=== PATIENT | male | born 1955 | race Caucasian/White ===

== ENCOUNTER → 2018-04-19 11:21 | Outpatient (CLI) | payer OTHER, SELFPAY ==
[2018-04-19 14:03] LABS: ALB/GLOB Ratio 1.1 RATIO (0.9-2.4); AST(SGOT) 18 U/L (15-37); Alanine Aminotransfer ALT/SGPT 27 U/L (16-61); Albumin, Serum 3.7 g/dL (3.2-5.0); Alkaline Phosphatase 73 U/L (45-117); Anion Gap 6 (5-15); BUN 9 mg/dL (7-18); Calcium,Total 8.8 mg/dL (8.5-10.1); Chloride 105 mmol/L (98-107); Creatinine, Serum 1.28 mg/dL (0.70-1.30); EST Glomerular Filtration Rate 60 mL/min (>60); Est Glom Filt Rate - Afr Amer 73 mL/min (>60); Globulin 3.4 g/dL (2.2-4.2); Glucose 85 mg/dL (74-106); Potassium 4.3 mmol/L (3.5-5.1); Protein, Total 7.1 g/dL (6.4-8.2); Sodium Level 141 mmol/L (136-145)
== END ==
PROVIDERS: Family Provider Family Medicine; PCP Family Medicine; Visit Provider Family Medicine
DX: I10 Essential (primary) hypertension (principal)
CPT/HCPCS: 36415; 80053

== ENCOUNTER → 2019-02-13 | Outpatient (CLI) | payer OTHER, SELFPAY ==
[2019-02-13 15:21] VITALS: BMI 27.2
== END | disposition home or self-care (01) ==
LOC: BIMLAB 02-15 11:28
PROVIDERS: Family Provider Family Medicine; PCP Family Medicine; Visit Provider Family Medicine
DX: M79.674 Pain in right toe(s) (principal)
CPT/HCPCS: 87070; 87075; 87077; 87186; 87205

== ENCOUNTER → 2019-02-27 | Outpatient (CLI) | payer OTHER, SELFPAY ==
[2019-02-13 15:21] VITALS: BMI 27.2
--- NOTE | 2019-02-27 15:00 | RAD_ITS ---
STUDY: X-RAY - RIGHT FOOT CLINICAL: Male, 63 years old. Pain and swelling of the second toe. TECHNIQUE: 3 view(s) of the foot. COMPARISON: None. FINDINGS: Normal talus, calcaneus, and tarsal bones. Normal visualized subtalar, talonavicular, calcaneocuboid, tarsal and tarsometatarsal articulations. Normal metatarsi. Normal metatarsophalangeal joint of the great toe. Normal tibial and fibular sesamoid bones. Normal interphalangeal joint of the great toe. Normal phalanges of the great toe. Normal second through fifth metatarsophalangeal joints. Normal interphalangeal joints and phalanges of the lesser toes. Soft tissue swelling. RAD/Foot min 3 Views IMPRESSION: Soft tissue swelling. Electronically Signed: Ismael Jain, at 15:15 EDT , Service support ,
== END | disposition home or self-care (01) ==
PROVIDERS: Family Provider Family Medicine; PCP Family Medicine; Referring Provider Family Medicine; Visit Provider Family Medicine
DX: M00.871 Arthritis due to other bacteria, right ankle and foot (principal)
CPT/HCPCS: 73630

== ENCOUNTER → 2019-04-24 | Outpatient (CLI) | payer OTHER, SELFPAY ==
[2019-04-24 13:56] VITALS: BMI 27.2
[2019-04-24 16:21] LABS: ALB/GLOB Ratio 1.2 RATIO (0.9-2.4); AST(SGOT) 26 U/L (15-37); Alanine Aminotransfer ALT/SGPT 33 U/L (16-61); Albumin, Serum 3.9 g/dL (3.2-5.0); Alkaline Phosphatase 87 U/L (45-117); Anion Gap 7 (5-15); BUN 10 mg/dL (7-18); BUN/Creat Ratio 8.3 RATIO (10-20); Calcium,Total 8.8 mg/dL (8.5-10.1); Chloride 102 mmol/L (98-107); Cholesterol 167 mg/dL (200); EST Glomerular Filtration Rate 65 mL/min (>60); Est Glom Filt Rate - Afr Amer 78 mL/min (>60); Globulin 3.2 g/dL (2.2-4.2); Glucose 92 mg/dL (74-106); High Density Lipoprotein 59 mg/dL; Potassium 4.1 mmol/L (3.5-5.1); Protein, Total 7.1 g/dL (6.4-8.2); Sodium Level 140 mmol/L (136-145); Triglycerides 112 mg/dL; Very Low Density Lipoprotein 22 mg/dL (5-40)
== END | disposition home or self-care (01) ==
LOC: MTLAB 14:32
PROVIDERS: Family Provider Family Medicine; PCP Family Medicine; Referring Provider Family Medicine; Visit Provider Family Medicine
DX: I10 Essential (primary) hypertension (principal)
CPT/HCPCS: 36415; 80053; 80061

== ENCOUNTER → 2020-03-26 16:25 | Outpatient (CLI) | payer OTHER, SELFPAY ==
[2020-03-26 15:51] VITALS: BMI 27.2
[2020-03-26 17:39] LABS: Anion Gap 7 (5-15); BUN 12 mg/dL (7-18); BUN/Creat Ratio 9.5 RATIO (10-20); Calcium,Total 8.8 mg/dL (8.5-10.1); Chloride 99 mmol/L (98-107); Creatinine, Serum 1.26 mg/dL (0.70-1.30); EST Glomerular Filtration Rate 61 mL/min (>60); Est Glom Filt Rate - Afr Amer 74 mL/min (>60); Glucose 90 mg/dL (74-106); Potassium 3.9 mmol/L (3.5-5.1); Sodium Level 137 mmol/L (136-145)
== END ==
PROVIDERS: PCP Family Medicine; Referring Provider Family Medicine; Visit Provider Family Medicine
DX: I10 Essential (primary) hypertension (principal)
CPT/HCPCS: 36415; 80048

== ENCOUNTER → 2021-04-29 13:36 | Outpatient (CLI) | payer OTHER, SELFPAY ==
--- NOTE | 2021-04-29 13:38 | RAD_ITS ---
STUDY: X-RAY CHEST REASON FOR EXAM: Male, 65 years old. Wheezing TECHNIQUE: PA and lateral views of the chest. COMPARISON: None. FINDINGS: Lungs are mildly hyperexpanded without a superimposed acute pulmonary process. There is no demonstrated pleural abnormality. Normal size heart. Normal mediastinum and perla. Normal visualized pulmonary arteries. Normal visualized aortic arch and descending thoracic aorta. Normal visualized thoracic spine. Normal visualized ribs, clavicles, and shoulders. There is no demonstrated abnormality of the visualized soft tissue structures of the upper abdomen. RAD/Chest PA and Lateral IMPRESSION: Mildly hyperexpanded lungs without a superimposed acute pulmonary process Electronically Signed: Aleks Oswald MD at 17:01 EDT , Service support ,
[2021-04-29 15:36] LABS: Anion Gap 4 (5-15); BUN 10 mg/dL (7-18); Calcium,Total 8.8 mg/dL (8.5-10.1); Chloride 100 mmol/L (98-107); Creatinine, Serum 1.25 mg/dL (0.70-1.30); EST Glomerular Filtration Rate 61 mL/min (>60); Est Glom Filt Rate - Afr Amer 74 mL/min (>60); Glucose 107 mg/dL (74-106); Potassium 4.1 mmol/L (3.5-5.1); Sodium Level 135 mmol/L (136-145)
== END ==
PROVIDERS: PCP Family Medicine; Referring Provider Family Medicine; Visit Provider Family Medicine
DX: I10 Essential (primary) hypertension (principal); R06.2 Wheezing
CPT/HCPCS: 36415; 71046; 80048

== ENCOUNTER → 2022-04-28 | Outpatient (CLI) | payer OTHER, SELFPAY ==
[2022-04-28 16:52] LABS: ALB/GLOB Ratio 0.9 RATIO (0.9-2.4); AST(SGOT) 19 U/L (15-37); Alanine Aminotransfer ALT/SGPT 28 U/L (16-61); Albumin, Serum 3.6 g/dL (3.2-5.0); Alkaline Phosphatase 99 U/L (45-117); Anion Gap 7 (5-15); BUN 14 mg/dL (7-18); BUN/Creat Ratio 11.9 RATIO (10-20); Calcium,Total 8.9 mg/dL (8.5-10.1); Chloride 100 mmol/L (98-107); Cholesterol 184 mg/dL (200); Creatinine, Serum 1.18 mg/dL (0.70-1.30); EST Glomerular Filtration Rate 65 mL/min (>60); Est Glom Filt Rate - Afr Amer 79 mL/min (>60); Globulin 3.8 g/dL (2.2-4.2); Glucose 100 mg/dL (74-106); High Density Lipoprotein 49 mg/dL; Potassium 4.3 mmol/L (3.5-5.1); Protein, Total 7.4 g/dL (6.4-8.2); Sodium Level 136 mmol/L (136-145); Triglycerides 149 mg/dL; Very Low Density Lipoprotein 30 mg/dL (5-40)
== END | disposition home or self-care (01) ==
LOC: BIMLAB 14:55
PROVIDERS: PCP Family Medicine; Referring Provider Family Medicine; Visit Provider Family Medicine
DX: I10 Essential (primary) hypertension (principal)
CPT/HCPCS: 36415; 80053; 80061

== ENCOUNTER 2023-02-07 10:00 | Inpatient (IN) | payer OTHER, MEDICARE, SELFPAY ==
[2023-02-07] VITALS (9 sets, daily range): BP systolic 157–183; BP diastolic 81–92; PULSE 74–102; RESP 16–18; TEMP 36.6–37.1; O2SAT 96–99; BMI 27.6; BMI 26.0
--- NOTE | 2023-02-07 10:53 | CT_ITS ---
INDICATION: Flank pain bilateral. Hernia repair EXAMINATION: CT ABDOMEN AND PELVIS WITHOUT CONTRAST - CT Abdomen And Pelvis W/O Contrast Injection TECHNIQUE: Helically acquired images were obtained of the abdomen and pelvis without oral or IV contrast. A radiation dose optimization technique was used for this scan. IV Contrast dosage and agent: None. Oral contrast: None. RADIATION DOSAGE (If Supplied By Facility): CTDIvol = ( 10.63 ) mGy, DLP = ( 504.77 ) mGycm COMPARISON: No relevant prior comparison study available FINDINGS: LOWER CHEST: Lung bases are clear. There is a pericardial effusion. There are coronary artery calcifications. The lack of intravenous contrast limits evaluation of solid visceral organs. LIVER: There is a too small to characterize low-attenuation focus within the dome of the left hepatic lobe which may reflect a cyst. No focal mass. GALLBLADDER AND BILIARY TREE: No calcified gallstones. No gallbladder distension or wall edema. No intra- or extrahepatic biliary ductal dilation. PANCREAS: No focal cystic or solid mass. SPLEEN: Normal size without focal cystic or solid mass. ADRENAL GLANDS: No nodules. KIDNEYS AND URETERS: Normal renal size and position. No hydronephrosis. PERITONEUM: No ascites or free air. No other fluid collection. BOWEL: There are diverticula arising from the colon. There is circumferential wall thickening of the sigmoid colon associated with adjacent stranding consistent with colonic diverticulitis. There is a walled off focus of fluid and air within the pelvis left of midline and extending anterior to the left common iliac vessels measuring up to 7.3 x 7.4 x 4.8 cm (image 106 series 2) there is an additional smaller walled off extraluminal focus of air and fluid adjacent to the sigmoid colon left midline measuring up to 2.4 x 2.7 x 1.5 cm (image 127 series 2). There is an additional round fluid focus adjacent to the distal sigmoid colon and proximal rectum measuring up to 2.6 x 2.3 x 2.6 cm. There is a hiatal hernia. No evidence of acute appendicitis. LYMPH NODES: No enlarged mesenteric or retroperitoneal lymph nodes. VESSELS: Aorta is non-dilated. There are peripheral calcifications of the abdominal aorta. URINARY BLADDER: The anterior urinary bladder right of midline protrudes into a right inguinal hernia. REPRODUCTIVE ORGANS: No pelvic masses. BONES: There are degenerative changes of the lumbar spine. CT/Abdomen/Pelvis without Cont IMPRESSION: Acute diverticulitis of the sigmoid colon associated with evidence of prior perforation and likely abscesses within the pelvis measuring up to 7.3 x 7.4 x 4.8 cm. Atherosclerosis. Right inguinal bladder hernia. Hiatal hernia. Small pericardial effusion. N.B. : The above Results were Read Back by Chrissy Robins MD to Chao Dietz DO, and understanding confirmed on 02/07/2023 11:53:43 (ET). Electronically Signed: Chrissy Robins MD at 11:54 EDT ,
[2023-02-07] MEDS: 0.9% Normal Saline 1,000 ML 1000 ML IV (11:18)
[2023-02-07] MEDS: Morphine 4 MG/ML Syringe IV ×3 (11:19→22:26)
[2023-02-07 11:23] LABS: Absolute Lymphocyte Count 0.87 X10^3/uL (0.83-4.51); Absolute Neutrophil Count 11.6 X10^3/uL (2.0-7.7); Basophil# 0.07 X10^3/uL; Basophil% 0.5 % (0-1); Eosinophil# 0.05 X10^3/uL; Eosinophils% 0.4 % (0-5); Hematocrit 39.6 % (40-54); Lymphocyte # 0.87 X10^3/ul (0.83-4.51); Lymphocyte % 6.2 % (19-41); Mean Corp Hgb Conc 35.4 g/dL (32-36); Mean Corpuscular Volume 90.6 fL (80-94); Mean Platelet Vol. 8.5 fl (6.2-12.0); Monocyte% 9.3 % (0-10); NRBC Flagged by Analyzer 0 % (0-5); Neutrophil # 11.57 X10^3/uL (2.7-7.7); Neutrophil % 82.5 % (47-70); Platelet Count 470 K/mm3 (150-450); RBC Distribution Width CV 12.6 % (11.6-14.6); RBC Distribution Width SD 41.9 fl (35.1-43.9); Red Blood Count 4.37 M/mm3 (4.6-6.2)
[2023-02-07 11:30] LABS: Bacteria 0 SEEN /hpf (None Seen); Mucous, Urine 0 SEEN /hpf (<or=2+); Red Blood Cells-Urine 0 SEEN /hpf (0-5)
[2023-02-07 11:38] LABS: Color, Urine Yellow (Yellow); Glucose, Dipstick Normal (Normal); Leukocyte Esterase-Dipstick 25 /ul (Negative); Nitrite-Dipstick Negative (Negative); Occult Blood-Urine 10 /ul (Negative); Protein-Dipstick 15 mg/dl (Negative); Specific Gravity, Urine 1.015 (1.002-1.030); Urine Clarity Clear (Clear); Urine Urobilinogen 8 mg/dl (Normal)
[2023-02-07 11:39] LABS: ALB/GLOB Ratio 0.6 RATIO (0.9-2.4); AST(SGOT) 16 U/L (15-37); Alanine Aminotransfer ALT/SGPT 43 U/L (16-61); Albumin, Serum 2.7 g/dL (3.2-5.0); Alkaline Phosphatase 102 U/L (45-117); Anion Gap 10 (5-15); BUN 9 mg/dL (7-18); BUN/Creat Ratio 10.8 RATIO (10-20); Calcium,Total 8.9 mg/dL (8.5-10.1); Chloride 99 mmol/L (98-107); Creatinine, Serum 0.83 mg/dL (0.70-1.30); EST Glomerular Filtration Rate 97 mL/min (>60); Est Glom Filt Rate - Afr Amer 118 mL/min (>60); Estimated Creatinine Clearance 81.27 ml/min; Globulin 4.5 g/dL (2.2-4.2); Glucose 121 mg/dL (74-106); Potassium 3.9 mmol/L (3.5-5.1); Protein, Total 7.2 g/dL (6.4-8.2); Sodium Level 132 mmol/L (136-145)
[2023-02-07 11:39] LABS: Ketone-Dipstick 150 mg/dl (Negative); Urine Bilirubin Dipstick 1 mg/dL (Negative)
[2023-02-07 11:46] LABS: Squamous Epithelial Cells - UA 0-5 SEEN /hpf (0-5); White Blood Cells 0-5 SEEN /hpf (0-5)
--- NOTE | 2023-02-07 12:11 | EX.ED.DYSGE1 ---
HPI History of Present Illness Chief Complaint: Flank Pain Informant: patient Onset/Context/Timing Onset: Weeks (2) Context: Sudden Onset Timing: Continuous Quality: Burning, throbbing Location: Bilateral flank area Worsened by: Nothing Relieved by: Nothing Narrative Narrative: Patient presents with bilateral flank pain that began approximately 2 weeks ago. Patient states he was having a cough at that time. Patient states he was coughing very hard and felt pain in his bilateral flank areas. Patient states this has been constant. Patient states he felt like something tore in his bilateral flank areas. Patient states he has had some darker urine recently. Patient states this is improving. Patient does not know if it was blood. Patient denies any fevers or chills. Patient denies any nausea or vomiting. [facility] Medical History (Updated 02/07/23 @ 12:[address] Chao Dietz DO) History of pneumonia Hypertension Home Medications aspirin 81 mg tablet,delayed release (Adult Aspirin Regimen) 81 mg PO DAILY 04/01/22 [History Last Taken Unknown] quinapril 20 mg-hydrochlorothiazide 12.5 mg tablet 1 tab PO DAILY #90 tabs 04/28/22 [Rx Last Taken Unknown] sildenafil (pulm.hypertension) 20 mg tablet 20 mg PO .PRN #30 tabs 07/11/22 [Rx Last Taken Unknown] hydrochlorothiazide 12.5 mg tablet 12.5 mg PO DAILY #90 tabs 08/16/22 [Rx Last Taken Unknown] quinapril 20 mg tablet 20 mg PO DAILY #90 tabs 08/22/22 [Rx Last Taken Unknown] benazepril 20 mg tablet See Rx Instructions PO DAILY #90 tabs 11/23/22 [Rx Last Taken Unknown] Allergy/AdvReac Type Severity Reaction Status Date / Time No Known Allergies Allergy Verified 02/07/23 10:04 Family History Grandmother Myocardial infarction, Onset Age: 68 Uncle Myocardial infarction, Onset Age: 47 Alcoholism Sister Diabetes Mother Hypertension Father COPD (chronic obstructive pulmonary disease) smoker Surgical History H/O colonoscopy History of hemorrhoidectomy History of hernia repair History of tonsillectomy Social History Smoking Status: Former smoker how long ago did patient quit smokin alcohol intake: current alcohol intake frequency: 0-2 drinks per day Alcohol type: beer substance use type: does not use what type of physical activity do you participate in: walking frequency: 3-4 times per week ROS ROS ED Constitutional Constitutional ED: Denies chills or fever(s) Eyes Eyes: Denies blurry vision or change in vision ENT ENT ED: Denies rhinorrhea or sore throat Cardiovascular Cardiovascular: Denies chest pain or palpitations Respiratory/Chest Respiratory/Chest: Reports cough; Denies dyspnea Gastrointestinal Gastrointestinal: Denies nausea or vomiting Genitourinary Genitourinary ED: Denies dysuria or hematuria Musculoskeletal Musculoskeletal: Reports back pain; Denies neck pain Integumentary Denies abscess or rash Neurologic Neurologic: Denies headache(s) or weakness Allergic/Immunologic Allergic/Immunologic ED: Denies mouth swelling or urticaria EXAM Physical Exam Const Vital Signs: 02/07/23 10:01 02/07/23 10:24 02/07/23 12:00 Temperature 98 F Temperature Source Temporal Pulse Rate 102 H 89 Respiratory Rate 18 16 Respiratory Effort Normal Non-Labored Respiratory Pattern Normal Blood Pressure 183/86 H 164/92 H Blood Pressure Mean 118 116 Pulse Ox 98 97 Oxygen Delivery Method Room Air Room Air Positive well nourished and well developed General Appearance ED: well developed HEENT Reports moist mucous membranes Neck supple and no JVD Resp normal respiratory effort and clear to auscultation bilaterally Cardio regular rate, regular rhythm and no murmurs GI normal to inspection, nondistended, normoactive bowel sounds Palpation: soft and tender LLQ, RLQ, LUQ, RUQ, periumbilical and suprapubic; Negative for guarding or rebound tenderness present Extremity normal to inspection General Extremety ED: Negative for edema or tenderness General Extremity: Negative for edema Neuro oriented x3, CN's II-XII intact bilaterally and no sensory deficits noted Sensorium / Orientation: alert Motor Exam: strength 5/5 throughout Psych mental status grossly normal Skin no rashes or lesions noted MDM MDM MDM Narrative Medical decision making narrative: Differential diagnosis includes urinary tract infection, ureteral calculus, gastroenteritis, diverticulitis, diverticulosis, electrolyte abnormality, and bowel obstruction. CBC will be obtained to assess for leukocytosis and anemia. Comprehensive metabolic profile will be obtained to assess for hepatic function, renal function, and electrolyte abnormality. Urinalysis will be obtained to assess for urinary tract infection and hematuria. CT scan of the abdomen pelvis will be obtained to assess for ureteral calculus, pyelonephritis, bowel obstruction, and perforation. Lab Data Attestation: I reviewed the patient's lab results. Lab results narrative: CBC was reviewed. There is a leukocytosis of 14.0. Comprehensive metabolic profile was reviewed. There is a mild hyponatremia of 132. Glucose was slightly elevated at 121. Urinalysis was reviewed. Urine ketones were 150. There is no evidence of urinary tract infection or hematuria. Labs: Laboratory Results - last 24 hr 02/07/23 02/07/23 02/07/23 11:15 11:15 11:25 WBC 14.0 H RBC 4.37 L Hgb 14.0 Hct 39.6 L MCV 90.6 MCH 32.0 MCHC 35.4 RDW Std Deviation 41.9 RDW Coeff of [place]ivo 12.6 Plt Count 470 H MPV 8.5 Immature Gran % (Auto) 1.100 H Neut % (Auto) 82.5 H Lymph % (Auto) 6.2 L [place] % (Auto) 9.3 Eos % (Auto) 0.4 Baso % (Auto) 0.5 Absolute Neuts (auto) 11.6 H Absolute Lymphs (auto) 0.87 Nucleated RBC % 0 Sodium 132 L Potassium 3.9 Chloride 99 Carbon Dioxide 23.0 Anion Gap 10 BUN 9 Creatinine 0.83 Estim Creat Clear Calc 81.27 Est GFR (MDRD) Af Amer 118 Est GFR (MDRD) Non-Af 97 BUN/Creatinine Ratio 10.8 Glucose 121 H Calcium 8.9 Total Bilirubin 0.70 AST 16 ALT 43 Alkaline Phosphatase 102 Total Protein 7.2 Albumin 2.7 L Globulin 4.5 H Albumin/Globulin Ratio 0.6 L Urine Color Yellow Urine Clarity Clear Urine pH 7.0 Ur Specific [place] 1.015 Urine Protein 15 H Urine Glucose (UA) Normal Urine Ketones 150 A* Urine Occult Blood 10 H Urine Nitrite Negative Urine Bilirubin 1 H Urine Urobilinogen 8 H Ur Leukocyte Esterase 25 H Urine RBC 0 SEEN Urine WBC 0-5 SEEN Ur Squamous Epith Cells 0-5 SEEN Urine Bacteria 0 SEEN Urine Mucus 0 SEEN Radiography Diagnostic Testing: Clinical Impression(s) from Imaging Studies Abdomen/Pelvis CT 02/07/23 10:53 IMPRESSION: Acute diverticulitis of the sigmoid colon associated with evidence of prior perforation and likely abscesses within the pelvis measuring up to 7.3 x 7.4 x 4.8 cm. Atherosclerosis. Right inguinal bladder hernia. Hiatal hernia. Small pericardial effusion. N.B. : The above Results were Read Back by Chrissy Robins MD to Chao Dietz DO, and understanding confirmed on 02/07/2023 11:53:43 (ET). Electronically Signed: Chrissy Robins MD at 11:54 EDT , ADDENDUM: 02/07/23 1201 IMPRESSION: Acute diverticulitis of the sigmoid colon associated with evidence of prior perforation and likely abscesses within the pelvis measuring up to 7.3 x 7.4 x 4.8 cm. Atherosclerosis. Right inguinal bladder hernia. Hiatal hernia. Small pericardial effusion. N.B. : The above Results were Read Back by Chrissy Robins MD to Chao Dietz DO, and understanding confirmed on 02/07/2023 11:53:43 (ET). Electronically Signed: Chrissy Robins MD at 11:54 EDT , CT scan of the abdomen and pelvis was obtained. There is diverticulitis of the sigmoid colon. There is perforation and likely abscess within the pelvis. This was interpreted by the radiologist and was also independently reviewed by myself. Treatment and Re-Evaluation :: Patient was given IV fluids and morphine. Patient was advised of his findings. Case was discussed with Dr. Fernandez from general surgery. He recommended starting Zosyn. This was ordered. He will be in to evaluate the patient. Patient and family understand and are agreeable with the plan. All questions were answered. Dr. Fernandez was in to evaluate the patient. He will admit the patient to his service. Patient was ordered a dose of Dilaudid for his pain. Patient was given a dose of Dilaudid and then developed diffuse erythema. Oropharynx was clear. Airway is patent. There is no pharyngeal edema noted. Patient was given a dose of Benadryl for this. Patient understands and is agreeable with the plan. All questions were answered. Discharge Plan Triage Chief Complaint: Flank Pain ED Provider: Chao Dietz Dx/Rx/DC Orders Clinical Impression: Diverticulitis of colon with perforation, Abscess of pelvis Prescriptions: No Action aspirin [Adult Aspirin Regimen] 81 mg tablet,delayed release (DR/EC) 81 mg PO DAILY quinapril-hydrochlorothiazide 20-12.5 mg tablet 1 tab PO DAILY Qty: 90 3RF Hold Instructions: Not available. sildenafil (pulm.hypertension) 20 mg tablet 20 mg PO .PRN Qty: 30 3RF Rx Instructions: administer doses at least 4-6 hours apart hydrochlorothiazide 12.5 mg tablet 12.5 mg PO DAILY Qty: 90 0RF quinapril 20 mg tablet 20 mg PO DAILY Qty: 90 0RF Hold Instructions: Order Changed benazepril 20 mg tablet See Rx Instructions PO DAILY Qty: 90 2RF Dose Instruction: 20 MG ORALLY DAILY Rx Instructions: 20 MG ORALLY DAILY orally daily; Primary Care Provider: Will Eldridge Referrals: Will Eldridge, DO [Primary Care Provider] - Disposition Disposition: Acute Care Hospital [facility]
--- NOTE | 2023-02-07 13:34 | HP.PCM_ITS ---
[facility] - General General Date of Admission: 02/07/23 Chief Complaint: Flank pain, constipation, and inability to eat or sleep normally HPI Narrative LAURO GIPSON, is a 67 M who presents to [facility] ER with complaints of bilateral flank pain for the last 1 month. He reports that this pain has been worse with coughing. He states that he has had weeks of constipation and poor sleep on the account of this flank pain. He estimates that it has been 1 month since he had a well-rounded diet. He has been trying to eat fruits and things that are easily digestible just to subsist. He states that he simply told his that he would come in if his pain was not better by the following day and that date is today. He denies any fevers or chills at h ome. He states that he has had some difficulty getting into his primary care provider and has been treated for some constipation. Patient has a past medical history of hypertension. Surgically speaking, he has a history of bilateral open inguinal hernia repair in 2000 and a hemorrhoidectomy several years later. He states that he did have a colonoscopy approximately 15 years ago and was found to have a single polyp. He recalls a 10-year follow-up was recommended, but states that he did not go through with this updated screening on the account of a family issue that developed. Mr. Gipson is unaware of any family history of colon cancer. ER work-up is notable for CBC that demonstrates leukocytosis of 14,000. CT imaging of the abdomen and pelvis without p.o. or IV contrast shows evidence of multiple abscesses including a greater than 7 cm abscess adjacent in appearance of acute diverticulitis in the sigmoid colon. [facility] Medical History (Updated 02/07/23 @ 12:[address] Chao Dietz, ) History of pneumonia Hypertension Home Medications aspirin 81 mg tablet,delayed release (Adult Aspirin Regimen) 81 mg PO DAILY 04/01/22 [History Last Taken Unknown] sildenafil (pulm.hypertension) 20 mg tablet 20 mg PO .PRN #30 tabs 07/11/22 [Rx Last Taken Unknown] benazepril 20 mg tablet See Rx Instructions PO DAILY #90 tabs 11/23/22 [Rx Last Taken Unknown] Allergy/AdvReac Type Severity Reaction Status Date / Time hydromorphone [From Dilaudid] Allergy Hives Verified 02/07/23 13:52 Family History Grandmother Myocardial infarction, Onset Age: 68 Uncle Myocardial infarction, Onset Age: 47 Alcoholism Sister Diabetes Mother Hypertension Father COPD (chronic obstructive pulmonary disease) smoker Surgical History H/O colonoscopy History of hemorrhoidectomy History of hernia repair History of tonsillectomy Social History Smoking Status: Former smoker how long ago did patient quit smokin alcohol intake: current alcohol intake frequency: 0-2 drinks per day Alcohol type: beer substance use type: does not use what type of physical activity do you participate in: walking frequency: 3-4 times per week ROS Constitutional Constitutional: Denies chills, fever(s) or night sweats Gastrointestinal Gastrointestinal: Reports abdominal pain and constipation; Denies diarrhea, nausea or vomiting Genitourinary Genitourinary: Reports other Details: Notes urine has been darker in color Vital Signs Vital Signs Vital Signs: 02/07/23 10:01 02/07/23 10:24 02/07/23 12:00 Temperature 98 F Temperature Source Temporal Pulse Rate 102 H 89 Respiratory Rate 18 16 Respiratory Effort Normal Non-Labored Respiratory Pattern Normal Blood Pressure 183/86 H 164/92 H Blood Pressure Mean 118 116 Pulse Ox 98 97 Oxygen Delivery Method Room Air Room Air Weight Weight: 182 lb Body Mass Index (BMI) 27.6 Physical Exam Const alert, oriented x3, no apparent distress and well nourished General Appearance: cooperative Resp normal respiratory effort GI GI Narrative: No scars, minimally distended, soft, nontender to palpation x4 quadrants including deep, focused palpation of the left lower quadrant and mid abdomen Results Lab / Micro Data Result Diagrams: 02/07/23 11:15 02/07/23 11:15 Labs: Laboratory Results - last 24 hr 02/07/23 11:15: WBC 14.0 H, RBC 4.37 L, Hgb 14.0, Hct 39.6 L, MCV 90.6, MCH 32. 0, MCHC 35.4, RDW Std Deviation 41.9, RDW Coeff of [place] 12.6, Plt Count 470 H, MPV 8.5, Immature Gran % (Auto) 1.100 H, Neut % (Auto) 82.5 H, Lymph % (Auto) 6.2 L, [place] % (Auto) 9.3, Eos % (Auto) 0.4, Baso % (Auto) 0.5, Absolute Neuts (auto) 11.6 H, Absolute Lymphs (auto) 0.87, Nucleated RBC % 0 02/07/23 11:15: Sodium 132 L, Potassium 3.9, Chloride 99, Carbon Dioxide 23.0, Anion Gap 10, BUN 9, Creatinine 0.83, Estim Creat Clear Calc 81.27, Est GFR (MDRD) Af Amer 118, Est GFR (MDRD) Non-Af 97, BUN/Creatinine Ratio 10.8, Glucose 121 H, Calcium 8.9, Total Bilirubin 0.70, AST 16, ALT 43, Alkaline Phosphatase 102, Total Protein 7.2, Albumin 2.7 L, Globulin 4.5 H, Albumin/Globulin Ratio 0.6 L 02/07/23 11:25: Urine Color Yellow, Urine Clarity Clear, Urine pH 7.0, Ur Specific [place] 1.015, Urine Protein 15 H, Urine Glucose (UA) Normal, Urine Ketones 150 A*, Urine Occult Blood 10 H, Urine Nitrite Negative, Urine Bilirubin 1 H, Urine Urobilinogen 8 H, Ur Leukocyte Esterase 25 H, Urine RBC 0 SEEN, Urine WBC 0-5 SEEN, Ur Squamous Epith Cells 0-5 SEEN, Urine Bacteria 0 SEEN, Urine M ucus 0 SEEN Radiology Impression Abdomen/Pelvis CT 02/07/23 10:53 IMPRESSION: Acute diverticulitis of the sigmoid colon associated with evidence of prior perforation and likely abscesses within the pelvis measuring up to 7.3 x 7.4 x 4.8 cm. Atherosclerosis. Right inguinal bladder hernia. Hiatal hernia. Small pericardial effusion. N.B. : The above Results were Read Back by Chrissy Robins MD to Chao Dietz DO, and understanding confirmed on 02/07/2023 11:53:43 (ET). Electronically Signed: Chrissy Robins MD at 11:54 EDT , ADDENDUM: 02/07/23 1201 IMPRESSION: Acute diverticulitis of the sigmoid colon associated with evidence of prior perforation and likely abscesses within the pelvis measuring up to 7.3 x 7.4 x 4.8 cm. Atherosclerosis. Right inguinal bladder hernia. Hiatal hernia. Small pericardial effusion. N.B. : The above Results were Read Back by Chrissy Robins MD to Chao Dietz DO, and understanding confirmed on 02/07/2023 11:53:43 (ET). Electronically Signed: Chrissy Robins MD at 11:54 EDT , Assessment & Plan Assessment/Plan (1) Diverticulitis of colon with perforation: PLAN: This is a 67-year-old male with minimal past medical history (inclusive only of hypertension) who presents with a month-long complaint of bilateral flank pain, constipation, poor diet, and poor sleep. His ER work-up reveals evidence of perforated diverticulitis with a large intra-abdominal abscess measuring greater than 7 cm. Unfortunately the abscess area is not amenable to percutaneous drainage and the success of this venture?even if possible?is dubious given that the contents of the abscess appeared more feculent than homogenous/confluent. Patient is remarkably clinically stable with minimal discomfort on exam. This suggests that his problem has been very slow to develop and things are very well walled off; an observation that accords well with the history given. Given this full picture, I recommended admission with IV antibiotic therapy and plans for surgical intervention. Surgically, I have shared my recommendation with and Mrs. Gipson that I would plan for an open segmental colectomy with probable end colostomy (final decision about possible reanastomosis contingent on intraoperative findings). I believe the inflammatory process and large size of patient's abscess somewhat dictates an open approach. Further, my reasons for recommending a probable colostomy include this active infectious process in the vicinity of any anastomosis as well as patient's poor nutrition over the past month as evinced by his laboratories that show albumin of 2.7. (2) Abscess of pelvis: Charges/Coding Visit Charges Inpatient E&M: 49994 Init Hosp L2
[2023-02-07] MEDS: HYDROmorphone 1 MG/ML Syringe 0.5 MG IV (13:42)
--- NOTE | 2023-02-07 13:45 | ED.RN ---
DILAUDID ADMIN BY AGUILA HOFFMAN. RXN NOTED- REDNESS, ITCHING, HIVES. DR BROWN NOTIFIED-NEW ORDER FOR BENADRYL PLACED AND ADMIN. WILL CONT TO MONITOR. MED ADDED TO ALLERGY LIST.
[2023-02-07] MEDS: DiphenhydrAMINE 50 MG/ML Syringe 25 MG IV (13:53)
--- NOTE | 2023-02-07 14:02 | NURSING ---
Louis HAN PERFORATED DIVERTICULITIS, PELVIC ABSCESS
[2023-02-07] MEDS: 0.9% Normal Saline 1,000 ML 125 ML IV ×2 (16:08→22:26)
[2023-02-07] MEDS: Electrolyte Solution/Peg's 4000 ML 1000 ML PO (16:08)
[2023-02-07] MEDS: Bisacodyl 5 MG Tablet 20 MG PO (16:15)
[2023-02-07] MEDS: 0.9% Saline Lock 10 ML Syringe IV (17:39)
[2023-02-08] MEDS: Morphine 4 MG/ML Syringe IV ×4 (04:45→20:12)
--- NOTE | 2023-02-08 05:00 | EKG12_ITS ---
Test Reason : RF Blood Pressure : / mmHG Vent. 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
[2023-02-08] MEDS: 0.9% Normal Saline 1,000 ML 125 ML IV ×4 (05:40→22:57)
[2023-02-08 07:19] LABS: Absolute Lymphocyte Count 0.87 X10^3/uL (0.83-4.51); Basophil# 0.07 X10^3/uL; Basophil% 0.5 % (0-1); Eosinophil# 0.05 X10^3/uL; Eosinophils% 0.4 % (0-5); Hematocrit 36.7 % (40-54); Hemoglobin 12.5 g/dL (13.0-16.5); Lymphocyte # 0.87 X10^3/ul (0.83-4.51); Lymphocyte % 6.5 % (19-41); Mean Corp Hgb Conc 34.1 g/dL (32-36); Mean Corpuscular Hgb 31.5 pg (27.0-32.0); Mean Corpuscular Volume 92.4 fL (80-94); Monocyte# 1.34 X10^3/uL; Monocyte% 9.9 % (0-10); NRBC Flagged by Analyzer 0 % (0-5); Neutrophil # 11.01 X10^3/uL (2.7-7.7); Neutrophil % 81.7 % (47-70); Platelet Count 463 K/mm3 (150-450); RBC Distribution Width CV 12.6 % (11.6-14.6); RBC Distribution Width SD 42.7 fl (35.1-43.9); Red Blood Count 3.97 M/mm3 (4.6-6.2); White Blood Count 13.5 K/mm3 (4.4-11.0)
[2023-02-08 07:39] LABS: Anion Gap 10 (5-15); BUN 10 mg/dL (7-18); BUN/Creat Ratio 13.5 RATIO (10-20); Calcium,Total 8.3 mg/dL (8.5-10.1); Chloride 105 mmol/L (98-107); Creatinine, Serum 0.74 mg/dL (0.70-1.30); EST Glomerular Filtration Rate 111 mL/min (>60); Est Glom Filt Rate - Afr Amer 134 mL/min (>60); Estimated Creatinine Clearance 67.45 ml/min; Glucose 104 mg/dL (74-106); Magnesium 1.7 mg/dL (1.6-2.6); Phosphorus 2.6 mg/dL (2.5-4.9); Potassium 3.9 mmol/L (3.5-5.1); Sodium Level 135 mmol/L (136-145)
[2023-02-08] MEDS: Lisinopril 20 MG Tablet PO (08:23)
[2023-02-08 08:30] VITALS: BP 146/80; PULSE 80; RESP 18; TEMP 36.8; O2SAT 97
--- NOTE | 2023-02-08 08:37 | PN.SURG_ITS ---
Subjective Subjective Patient is hospital day 2 for admission for perforated diverticulitis. He reports no acute events overnight. He confirms tolerance of his clear liquid diet. He also reports completion of his partial bowel prep yesterday with numerous watery bowel movements. He states that the character of the stool is still a bit cloudy. He has only minor discomfort this morning. Objective Data Objective Data Vital Signs: Vital Signs Temp Pulse Resp BP Pulse Ox O2 Del Method 97.8 F 93 18 163/88 H 99 Room Air 02/07/23 22:22 02/07/23 22:22 02/07/23 22:22 02/07/23 22:22 02/07/23 22:22 02/07/23 22:22 Oxygen Delivery Method Room Air Weight: 171 lb 7.997 oz Body Mass Index (BMI) 26.0 Intake & Output: Intake and Output for Last 24 Hours 02/06/23 02/07/23 02/08/23 23:59 23:59 23:59 Intake Total 2887.5 / 2887.5 1793.75 / 1793.75 Balance 2887.5 / 2887.5 1793.75 / 1793.75 Lab / Micro Data 02/08/23 06:09 02/08/23 06:09 Labs: Laboratory Results - last 24 hr 02/07/23 11:15: WBC 14.0 H, RBC 4.37 L, Hgb 14.0, Hct 39.6 L, MCV 90.6, MCH 32.0, MCHC 35.4, RDW Std Deviation 41.9, RDW Coeff of Chivo 12.6, Plt Count 470 H, MPV 8.5, Immature Gran % (Auto) 1.100 H, Neut % (Auto) 82.5 H, Lymph % (Auto) 6.2 L, Millard % (Auto) 9.3, Eos % (Auto) 0.4, Baso % (Auto) 0.5, Absolute Neuts (auto) 11.6 H, Absolute Lymphs (auto) 0.87, Nucleated RBC % 0, Sodium 132 L, Potassium 3.9, Chloride 99, Carbon Dioxide 23.0, Anion Gap 10, BUN 9, Creatinine 0.83, Estim Creat Clear Calc 81.27, Est GFR (MDRD) Af Amer 118, Est GFR (MDRD) Non-Af 97, BUN/Creatinine Ratio 10.8, Glucose 121 H, Calcium 8.9, Total Bilirubin 0.70, AST 16, ALT 43, Alkaline Phosphatase 102, Total Protein 7.2, Albumin 2.7 L, Globulin 4.5 H, Albumin/Globulin Ratio 0.6 L 02/07/23 11:25: Urine Color Yellow, Urine Clarity Clear, Urine pH 7.0, Ur Specific [place] 1.015, Urine Protein 15 H, Urine Glucose (UA) Normal, Urine Ketones 150 A*, Urine Occult Blood 10 H, Urine Nitrite Negative, Urine Bilirubin 1 H, Urine Urobilinogen 8 H, Ur Leukocyte Esterase 25 H, Urine RBC 0 SEEN, Urine WBC 0-5 SEEN, Ur Squamous Epith Cells 0-5 SEEN, Urine Bacteria 0 SEEN, Urine Mucus 0 SEEN 02/08/23 06:09: WBC 13.5 H, RBC 3.97 L, Hgb 12.5 L, Hct 36.7 L, MCV 92.4, MCH 31.5, MCHC 34.1, RDW Std Deviation 42.7, RDW Coeff of Chivo 12.6, Plt Count 463 H, MPV 9.0, Immature Gran % (Auto) 1.000 H, Neut % (Auto) 81.7 H, Lymph % (Auto) 6.5 L, Millard % (Auto) 9.9, Eos % (Auto) 0.4, Baso % (Auto) 0.5, Absolute Neuts (auto) 11.0 H, Absolute Lymphs (auto) 0.87, Nucleated RBC % 0, Sodium 135 L, Potassium 3.9, Chloride 105, Carbon Dioxide 20.0 L, Anion Gap 10, BUN 10, Creatinine 0.74, Estim Creat Clear Calc 67.45, Est GFR (MDRD) Af Amer 134, Est GFR (MDRD) Non-Af 111, BUN/Creatinine Ratio 13.5, Glucose 104, Calcium 8.3 L, Phosphorus 2.6, Magnesium 1.7 Radiography Diagnostic Testing: Radiology Impression Abdomen/Pelvis CT 02/07/23 10:53 IMPRESSION: Acute diverticulitis of the sigmoid colon associated with evidence of prior perforation and likely abscesses within the pelvis measuring up to 7.3 x 7.4 x 4.8 cm. Atherosclerosis. Right inguinal bladder hernia. Hiatal hernia. Small pericardial effusion. N.B. : The above Results were Read Back by Chrissy Robins MD to Chao Dietz DO, and understanding confirmed on 02/07/2023 11:53:43 (ET). Electronically Signed: Chrissy Robins MD at 11:54 EDT , ADDENDUM: 02/07/23 1201 IMPRESSION: Acute diverticulitis of the sigmoid colon associated with evidence of prior perforation and likely abscesses within the pelvis measuring up to 7.3 x 7.4 x 4.8 cm. Atherosclerosis. Right inguinal bladder hernia. Hiatal hernia. Small pericardial effusion. N.B. : The above Results were Read Back by Chrissy Robins MD to Chao Dietz DO, and understanding confirmed on 02/07/2023 11:53:43 (ET). Electronically Signed: Chrissy Robins MD at 11:54 EDT , Physical Exam Const oriented x3 and no apparent distress Resp normal respiratory effort GI GI Narrative: Less distended, soft, very mild tenderness with palpation over the periumbilical region of the abdomen otherwise unremarkable Assessment & Plan Assessment/Plan (1) Diverticulitis of colon with perforation: PLAN: This is a 67-year-old male who is hospital day 2 for perforated diverticulitis. Overall he appears clinically stable with no increase in his pain. He appears to be tolerating a bowel prep and has had favorable results to date. Still, he reports some cloudy character to his output so we will continue this gentle prep today to try to achieve a clear character to his output. His white count is slightly down trended to 13.5 from 14 yesterday. He remains afebrile. Plans remain in place for operation tomorrow. Neuro: As needed morphine, as needed acetaminophen Pulm/CV: Incentive spirometer, will need as needed antihypertensives as patient is transition to n.p.o. at midnight?currently prescribed home DARÍO inhibitor FEN/GI: Trend electrolytes with altered diet, continue clear liquid diet with Ensure clears then n.p.o. at midnight, wound ostomy consult for ostomy marking : No current issues Heme/ID: Continue to trend CBC (hemoglobin is decreased likely owing to hemodil ution effect), continue empiric Zosyn therapy Endo: No current issues Proph: SCDs Dispo: Continue inpatient stay- plans for sigmoid colectomy tomorrow 02/09/2023 at noon Charges/Coding Visit Charges Inpatient E&M: 18256 Subs Hosp L2
[2023-02-08] MEDS: 0.9% Saline Lock 10 ML Syringe IV ×2 (09:51→14:01)
--- NOTE | 2023-02-08 11:10 | CASEMGMT ---
AGUILA MURRIETA Assessment: Face to Face with pt for initial transition planning/care coordination assessment. RN GLENNY introduced self and role at [facility], pt voices understanding and consents to assessment. Pt is A/O x4 and answers all questions appropriately at this time. Pt sitting up in bed with at bedside in no distress. Wound/Ostomy nurse just finished meeting with pt. Care providers, pharmacy, and demographics verified/updated. Admitting Dx: perforated diverticulitis PCP:[facility]te Specialists:Pt denies Preferred Pharmacy:[facility] Insurance: MMO, MCR A Prescription Benefit: yes LNOK: Ada Chung, Living Arrangements: Pt lives with in a two story home with 3 steps to enter with a rail. Pt has 15 steps to go up with a rail to the bedroom and bathroom. Pt reports he is I in ADL's at home and denies concerns. Transportation: Pt drives self and denies concerns with transportation. DME/HHC/SNF: Pt has a walking stick at home, does not use AD. Pt states they have walkers available that they could borrow if need. Pt has an adjustable bed. Pt denies hx of HHC or SNF stays. Pt states no concerns with going home at time of dc. Discussed possible options should pt need a colostomy. Pt is open to having HHC if needed. Pt states no further concerns/needs. CM to follow. Advised pt to ask CM if any further question/concerns/needs arise, voices understanding. Pt Goal: Home Plan: TBD pending OR and course of hospitalization
[2023-02-08] MEDS: Electrolyte Solution/Peg's 4000 ML 1000 ML PO (13:02)
[2023-02-08] MEDS: metroNIDAZOLE 500 MG Tablet 1000 MG PO ×3 (13:03→22:55)
[2023-02-08 14:22] VITALS: BP 143/80; PULSE 82; RESP 18; TEMP 36.8; O2SAT 97
[2023-02-08 22:10] VITALS: BP 139/72; PULSE 92; RESP 16; TEMP 36.8; O2SAT 95
[2023-02-09] VITALS (10 sets, daily range): BP systolic 106–156; BP diastolic 61–84; PULSE 80–104; RESP 16–18; TEMP 36.3–37; O2SAT 92–97; BMI 26.0
[2023-02-09] MEDS: 0.9% Normal Saline 1,000 ML 125 ML IV ×3 (06:12→23:56)
[2023-02-09] MEDS: 0.9% Saline Lock 10 ML Syringe IV ×4 (06:44→22:24)
[2023-02-09] MEDS: Morphine 4 MG/ML Syringe IV ×3 (06:44→22:24)
[2023-02-09 07:13] LABS: Absolute Lymphocyte Count 0.86 X10^3/uL (0.83-4.51); Absolute Neutrophil Count 10.4 X10^3/uL (2.0-7.7); Basophil# 0.08 X10^3/uL; Basophil% 0.6 % (0-1); Eosinophil# 0.04 X10^3/uL; Eosinophils% 0.3 % (0-5); Hematocrit 34.6 % (40-54); Hemoglobin 12.3 g/dL (13.0-16.5); Lymphocyte # 0.86 X10^3/ul (0.83-4.51); Lymphocyte % 6.8 % (19-41); Mean Corp Hgb Conc 35.5 g/dL (32-36); Mean Corpuscular Hgb 32.6 pg (27.0-32.0); Mean Corpuscular Volume 91.8 fL (80-94); Mean Platelet Vol. 8.6 fl (6.2-12.0); Monocyte# 1.14 X10^3/uL; NRBC Flagged by Analyzer 0 % (0-5); Neutrophil # 10.43 X10^3/uL (2.7-7.7); Platelet Count 385 K/mm3 (150-450); Red Blood Count 3.77 M/mm3 (4.6-6.2); White Blood Count 12.7 K/mm3 (4.4-11.0)
[2023-02-09 07:39] LABS: Anion Gap 9 (5-15); BUN 7 mg/dL (7-18); Chloride 103 mmol/L (98-107); EST Glomerular Filtration Rate 119 mL/min (>60); Est Glom Filt Rate - Afr Amer 144 mL/min (>60); Estimated Creatinine Clearance 67.45 ml/min; Glucose 122 mg/dL (74-106); Magnesium 1.8 mg/dL (1.6-2.6); Potassium 3.5 mmol/L (3.5-5.1); Sodium Level 131 mmol/L (136-145)
[2023-02-09] MEDS: Lisinopril 20 MG Tablet PO (08:10)
[2023-02-09] MEDS: Potassium Chloride 10mEq/100mL 10 MEQ/100 ML IV.SOLN. 100 MEQ IV BOLUS ×4 (09:18→12:54)
--- NOTE | 2023-02-09 12:00 | ABS_PTH ---
PATIENT: LAURO GIPSON LOC: MS3 U#:[id number] AGE/SX: 67/M ROOM: [facility] [place] RE02/07/[address]: Dr. Kiran Fernandez MD : 1955 BED: 1 DIS: 02/14/2023 SPEC #: [id number] RECD: 02/09/23 16:44 STATUS: MANDI REJeancarlos #: [id number] JODY: 02/09/23 12:[address]: Kiran Fernandez DEPT: SURGICAL PATHOLOGY RECD BY: Elvia Davies ENTERED: 02/10/23 07:47 SP TYPE: Abscess OTHR DR: Dr. Will Eldridge, DO Tissues: A - Abdominal wall, NOS B - Abdominal cavity, NOS C - Colon, NOS Procedures: Surgery Specimen Level IV HEADER OPERATION: Diagnostic laparoscopy TAP block, open sigmoid colectomy PRE-OP DIAGNOSIS: Diverticulitis of colon with perforation, abscess of pelvis TISSUE SUBMITTED: A - Abscess wall, B - Abscess cavity contents, C - Staple line sigmoid MICROSCOPIC DIAGNOSIS A. Abscess wall, biopsy: Fibrofatty tissue with acute and chronic inflammation and granulation. B. Abscess cavity contents: Fibrofatty tissue with acute and chronic inflammation and granulation. One out of one lymph node with no pathologic change. C. Sigmoid staple line, biopsy: No pathologic change. AM:esequiel 02/13/2023 MICROSCOPIC DESCRIPTION Slides are reviewed. GROSS DESCRIPTION A - Received in fixative is one container labeled with the patient's name and designated abscess wall. The specimen consists of multiple irregular fragments of dark to light anderson soft tissue ranging in size from 0.7 to 3.0 cm. The specimen is sectioned and totally submitted in two cassettes. B - Received in fixative is one container labeled with the patient's name and designated abscess cavity contents. The specimen consists of multiple irregular fragments of dark to light anderson soft tissue ranging in size from 0.5 to 2.5 cm. The larger fragment is serially sectioned and totally submitted along with the smaller fragments in two cassettes. C - Received in fixative is one container labeled with the patient's name and designated staple line sigmoid. The specimen consists of glistening anderson mucosa with attached hemorrhagic submucosal tissue measuring in aggregate 3.0 x 2.0 x 1.0 cm. The specimen contains metallic windy. Education Administrative Assistant sections are submitted in two cassettes. / AM:esequiel 02/10/2023 TC:2 CPT: 06772 x3
[2023-02-09] MEDS: 0.9% Normal Saline (Pres. free 10 ML Vial (12:40)
[2023-02-09] MEDS: Bupivacaine 0.25% 30 ML Vial (12:40)
[2023-02-09] MEDS: BUPIVACAINE LIPOSOME/PF 20 ML VIAL OPERA.SITE (12:40)
--- NOTE | 2023-02-09 15:01 | PCM.OPRPT ---
Report of Operation Date of Procedure: 02/09/23 Pre-Operative Diagnosis: Complicated diverticulitis with pericolonic abscess not amenable to percutaneous drainage Post-Operative Diagnosis: Same Surgery/Procedure Performed:: 1. Diagnostic laparoscopy 2. Transversus abdominis plane block 3. Open end diverting sigmoid colostomy Description of Surgical Findings:: ? Free purulent fluid within the pelvis emanating from a thick walled abscess cavity overlying the mesentery to the sigmoid colon ? Dense, severe inflammatory change causing impenetrable adhesions between the sigmoid colon and the pelvic sidewall Surgeon: Kiran Fernandez golf professional: Immanuel Davis golf professional: Juana Rios Type of Anesthesia: General/Supplemental Anesthesiologist: Chao Maya Specimen's removed: 1. Abscess cavity wall 2. Abscess cavity contents 3. Sigmoid colon staple line Drains: 15 Palauan round Hollis x2 (right and left lower abdominal quadrants) Estimated Blood Loss (mL): 150 Description of Procedure: After appropriate identification in the preoperative holding area the patient was brought to the operating room where he was induced with general anesthetic. His continuous IV antibiotics were redosed at the time of the room arrival. He was positioned in lithotomy in leg holders and a dilute solution of Betadine was used to irrigate his rectum in anticipation of a possible colorectal anastomosis. A Disla catheter was placed with sterile technique and then the abdomen and perineum were sterilely prepped in the usual standard fashion. After draping a formal timeout was completed amongst the personnel present in the room to confirm patient and procedure. The operation was begun with a open Macedo entry in a supraumbilical position. A finger sweep confirmed peritoneal entry and a balloon Macedo trocar was placed. Pneumoperitoneum was established to 15 mmHg and brief inspection of the peritoneum revealed no inadvertent injury from the laparoscopic entry, but there was evidence of abundant purulent fluid within the pelvis. We then proceeded with a bilateral tap block using a concentration of 60 mL Marcaine, 20 mL Exparel, and 20 mL saline. This block was administered via laparoscopic visualization. Given our laparoscopic findings, we immediately transitioned to an open approach and incised from the pubis toward the umbilicus cephalad to meet our supraumbilical trocar incision. This incision was carried down through the subcutaneous tissue and the abdominal wall until we regained peritoneal entry. Any bleeding was quickly addressed with selective cautery and emerging purulence was suctioned free. During this suctioning we also obtained a peritoneal fluid culture for micro. Then a large Fede wound protector was placed and we began peritoneal exploration. It was shortly evident that the sigmoid colon was densely adherent to the left pelvic sidewall and despite several attempts at finger fracture of the presumed interface no progress was to be made. At this time we also identified a large, thick-walled abscess cavity overlying the colonic mesentery to the sigmoid colon. This was bluntly probed and disrupted to produce additional yellow?green purulence. This purulence was suctioned free of the peritoneum. Given the observations with respect to the sigmoid colon and the perceived risk for injury to the underlying left ureter and iliac vessels we felt the best course of action was to perform a fecal diversion and widely drain the peritoneal cavity so the diseased colon could be addressed at a later OR. Therefore through a combination of blunt dissection and electrocautery, the left white line of Toldt was opened about to the level of the spleen and the colon was medialized. At the most proximal end of the sigmoid colon we identified some softer, pliable colon and chose this as a transection point. A window was made in the colonic mesentery bluntly and the colon was divided with a firing of the ADRIANNE stapler. Additional mobilization was undertaken as this did not appear to be able to reach the abdominal wall. Once we felt that mobilization was sufficient the peritoneal cavity was copiously irrigated with warm sterile saline solution. A total of 5 L of saline was introduced and used to irrigate each quadrant as well as the pelvis. The effluent was suctioned free. Next we opened the anterior wall of the patient's abscess cavity and debrided both some of the wall as well as removed some of the residue from within. Specimens of each were submitted for pathology. Following this we reviewed some small bowel that was densely adherent in the right lower quadrant and freeing this for a short distance to ensure there were no significant injuries. Finding none, we placed a 15 Palauan round Hollis drains through the bilateral lower abdominal quadrants into the abscess cavity as well as along the left paracolic gutter. The drains were secured at the abdominal wall with 2-0 nylon sutures. Aaron clamps were then applied to the patient's left abdominal wall fascia and our colostomy site was chosen based previous marking by wound and ostomy nursing. A disc of skin was removed with electrocautery and the subcutaneous tissues were splayed bluntly. The anterior rectus sheath was longitudinally incised and the rectus muscles were bluntly in the orientation of their fibers. Lastly the posterior rectus sheath was incised in a cruciate fashion and the opening was bluntly dilated until it accommodated 2 fingerbreadths comfortably. The proximal blind end of the descending colon was then carefully delivered through the abdominal wall until at least 4 cm resided above the abdominal wall. Two 3-0 Vicryl interrupted sutures were used to tack the serosa of the colon to the underside of the abdominal wall fascia. Upon verifying hemostasis we began closure of the peritoneum with running 3-0 Vicryl sutures. Next the abdominal wall fascia was closed in a bidirectional fashion using double-stranded looped PDS. Skin windy were spaced widely to promote postoperative drainage and a silver Mepilex was applied as a dressing. The patient's bilateral Hollis drains were placed to bulb suction. Finally we transitioned to maturation of the patient's colostomy in a standard Isabella fashion using interrupted 3-0 Vicryl suture. The ostomy was digitized and found to be widely patent through the fascia. A stomal appliance was cut to the circumference of this new ostomy and the procedure was considered complete. Anesthesia awoken the patient without difficulty and they were transferred to PACU for ongoing recovery. Grafts/Implants Used: N/A Complications None Admit VTE Documentation VTE Mechan Device Prophylaxis: SCD's
--- NOTE | 2023-02-09 15:39 | CASEMGMT ---
Discharge Planning HH list created and given to RN GLENNY. Celina Chaves, Discharge Planning Asst.
[2023-02-09] MEDS: Acetaminophen 500 MG Tablet PO (20:15)
[2023-02-10] VITALS (7 sets, daily range): BP systolic 99–189; BP diastolic 61–99; PULSE 74–104; RESP 18; TEMP 36.5–37.1; O2SAT 94–96
[2023-02-10] MEDS: Acetaminophen 500 MG Tablet PO ×2 (04:35→20:16)
[2023-02-10 06:45] LABS: Absolute Neutrophil Count 13.2 X10^3/uL (2.0-7.7); Basophil# 0.04 X10^3/uL; Basophil% 0.3 % (0-1); Eosinophil# 0.02 X10^3/uL; Eosinophils% 0.1 % (0-5); Hematocrit 34.9 % (40-54); Hemoglobin 12.1 g/dL (13.0-16.5); Lymphocyte % 5.2 % (19-41); Mean Corp Hgb Conc 34.7 g/dL (32-36); Mean Corpuscular Hgb 32.2 pg (27.0-32.0); Mean Corpuscular Volume 92.8 fL (80-94); Mean Platelet Vol. 8.8 fl (6.2-12.0); Monocyte# 1.03 X10^3/uL; Monocyte% 6.7 % (0-10); NRBC Flagged by Analyzer 0 % (0-5); Neutrophil # 13.17 X10^3/uL (2.7-7.7); Neutrophil % 86.4 % (47-70); Platelet Count 438 K/mm3 (150-450); RBC Distribution Width CV 12.8 % (11.6-14.6); RBC Distribution Width SD 43.4 fl (35.1-43.9); Red Blood Count 3.76 M/mm3 (4.6-6.2); White Blood Count 15.3 K/mm3 (4.4-11.0)
[2023-02-10] MEDS: 0.9% Normal Saline 1,000 ML 125 ML IV ×3 (07:06→22:27)
[2023-02-10 07:21] LABS: Anion Gap 7 (5-15); BUN 11 mg/dL (7-18); BUN/Creat Ratio 15.4 RATIO (10-20); Calcium,Total 7.7 mg/dL (8.5-10.1); Chloride 107 mmol/L (98-107); Creatinine, Serum 0.71 mg/dL (0.70-1.30); EST Glomerular Filtration Rate 116 mL/min (>60); Est Glom Filt Rate - Afr Amer 141 mL/min (>60); Estimated Creatinine Clearance 67.45 ml/min; Glucose 119 mg/dL (74-106); Magnesium 1.9 mg/dL (1.6-2.6); Phosphorus 3.2 mg/dL (2.5-4.9); Potassium 4.3 mmol/L (3.5-5.1); Sodium Level 133 mmol/L (136-145)
[2023-02-10] MEDS: Morphine 4 MG/ML Syringe IV ×3 (07:37→15:48)
[2023-02-10] MEDS: 0.9% Saline Lock 10 ML Syringe IV ×5 (07:38→21:04)
--- NOTE | 2023-02-10 10:58 | PCM.PN.SRG ---
Subjective Subjective Patient seen and examined during AM rounds. He reports minimal discomfort and finds this relatively isolated to when he is changing position in bed. He has improvement in his discomfort from preop. He denies any passage of flatus into his bag. Objective Data Objective Data Vital Signs: Vital Signs Temp Pulse Resp BP Pulse Ox O2 Del Method 98.3 F 93 18 122/78 H 94 Room Air 02/10/23 09:18 02/10/23 09:18 02/10/23 09:18 02/10/23 09:18 02/10/23 09:18 02/10/23 09:27 Oxygen Delivery Method Room Air Weight: 171 lb 7.997 oz Body Mass Index (BMI) 26.0 Intake & Output: Intake and Output for Last 24 Hours 02/08/23 02/09/23 02/10/23 23:59 23:59 23:59 Intake Total 4364.58 / 4364.58 3788.58 / 3788.58 995.83 / 995.83 Output Total 1491 / 1491 470 / 470 Balance 4364.58 / 4364.58 2297.58 / 2297.58 525.83 / 525.83 Lab / Micro Data 02/10/23 06:30 02/10/23 06:30 Labs: Laboratory Results - last 24 hr 02/10/23 06:30: WBC 15.3 H, RBC 3.76 L, Hgb 12.1 L, Hct 34.9 L, MCV 92.8, MCH 32.2 H, MCHC 34.7, RDW Std Deviation 43.4, RDW Coeff of Chivo 12.8, Plt Count 438, MPV 8.8, Immature Gran % (Auto) 1.300 H, Neut % (Auto) 86.4 H, Lymph % (Auto) 5.2 L, [place] % (Auto) 6.7, Eos % (Auto) 0.1, Baso % (Auto) 0.3, Absolute Neuts (auto) 13.2 H, Absolute Lymphs (auto) 0.80 L, Nucleated RBC % 0, Sodium 133 L, Potassium 4.3, Chloride 107, Carbon Dioxide 19.0 L, Anion Gap 7, BUN 11, Creatinine 0.71, Estim Creat Clear Calc 67.45, Est GFR (MDRD) Af Amer 141, Est GFR (MDRD) Non-Af 116, BUN/Creatinine Ratio 15.4, Glucose 119 H, Calcium 7.7 L, Phosphorus 3.2, Magnesium 1.9 Micro: Microbiology 02/09/23 13:09 Diverticulum Gram Stain - Final 02/09/23 13:09 Diverticulum Wound Culture - Preliminary Gram negative zoltan Gram positive organism Physical Exam Const oriented x3 and no apparent distress Resp normal respiratory effort GI GI Narrative: Moderately distended, appropriately tender to palpation. Silver operative dressing in place. Bilateral LOS drains with serosanguineous output. Left lower quadrant colostomy stoma pink and well-perfused. Assessment & Plan Assessment/Plan (1) Diverticulitis of colon with perforation: PLAN: This is a 67-year-old male who is postoperative day 1 from diverting open colostomy for perforated diverticulitis. Overall he appears clinically stable with some improvement in his preoperative pain. He appears to be tolerating a clear liquid diet, but denies any return of bowel function. He is admittedly taking minimal volumes as he is still reliant on the intravenous fluids he is receiving. Seen later in the day, he describes frequent hiccuping and belching which is suggestive of probable postoperative ileus. He underwent some ostomy teaching with wound and ostomy nursing. Neuro: As needed morphine, as needed acetaminophen Pulm/CV: Incentive spirometer, prescribed home DARÍO inhibitor FEN/GI: Trend electrolytes with altered diet, continue clear liquid diet until having bowel function, wound ostomy consult for ostomy : Disla catheter discontinued earlier today with spontaneous micturition Heme/ID: Continue to trend CBC, WBC expectedly elevated. Follow peritoneal cultures from Intra-Op, continue empiric Zosyn therapy Endo: No current issues Proph: SCDs, ambulate as tolerated Dispo: Continue inpatient stay. Patient to be seen by Dr. Garcia over the weekend. Charges/Coding Visit Charges Inpatient E&M: 80405 Subs Hosp L2
--- NOTE | 2023-02-10 13:05 | WOUNDNOTE ---
stoma photo: left lower abdomen
--- NOTE | 2023-02-10 13:06 | WOUNDNOTE ---
In to assess ostomy appliance and dressings. patient has a midline surgical dressing and LOS drains to the right and left lower abdomen. the LOS dressings were saturated with serosanguineous drainage. stripped the tubings. applied new dry split gauze dressings around the LOS drains and covered with dry dressings. secured with Medipore tape. there is some drainage noted on the inferior stoma appliance and some drainage on the abdominal dressing. appliance and midline surgical dressing removed. incision is well approximated with windy. applied new dry dressing. stoma is beefy red and well budded. peristoma skin is intact. stoma measures approx 1 1/2. cleaned the peristomal skin with warm water and pat dry. applied a new 2 piece Blackstone appliance with a paste ring. pt tolerated well. patient and both observed appliance change and asked questions. plan to change appliance again with patient and on Monday. no further questions or concerns at this time. Pt will need to practice emptying the appliance once bowel function returns. educated patient and how to clean the bottom of the pouch after emptying.
--- NOTE | 2023-02-10 15:30 | CASEMGMT ---
AGUILA MURRIETA into pt room, patient was provided a list of HHC providers including quality and resource use data and consistent with the patient?s preferred geographic region, medical needs, and insurance network were provided from the [employer] Guide. Pt would like to review with his the list before deciding. He is aware that RN GLENNY will check back on Monday. Spoke with wound nurse, rx on chart for ostomy supplies for HHC of pt choosing.
[2023-02-10] MEDS: Ondansetron 4 MG/2 ML Vial IV (20:17)
[2023-02-10] MEDS: Calcium Carbonate 500 MG Tablet 1000 MG PO (21:03)
[2023-02-10] MEDS: hydrALAZINE 20 MG/ML Vial 10 MG IV (21:03)
--- NOTE | 2023-02-10 23:03 | NURSING ---
pt continues with hiccups encouraged pt to ambulate but he is very tired and states he doesn't want to at this time.
[2023-02-11] MEDS: Calcium Carbonate 500 MG Tablet 1000 MG PO (03:45)
[2023-02-11] MEDS: Ondansetron 4 MG/2 ML Vial IV (03:46)
[2023-02-11] MEDS: 0.9% Saline Lock 10 ML Syringe IV (03:46)
[2023-02-11 03:57] VITALS: BP 146/93; PULSE 106; RESP 16; TEMP 36.1; O2SAT 96
[2023-02-11] MEDS: 0.9% Normal Saline 1,000 ML 125 ML IV ×2 (06:15→14:50)
[2023-02-11] MEDS: Pantoprazole Sodium 40 MG Tablet PO (06:16)
[2023-02-11 06:36] LABS: Absolute Neutrophil Count 20.3 X10^3/uL (2.0-7.7); Basophil# 0.14 X10^3/uL; Basophil% 0.6 % (0-1); Hematocrit 36.9 % (40-54); Hemoglobin 12.6 g/dL (13.0-16.5); Lymphocyte % 3.1 % (19-41); Mean Corp Hgb Conc 34.1 g/dL (32-36); Mean Corpuscular Hgb 31.8 pg (27.0-32.0); Mean Corpuscular Volume 93.2 fL (80-94); Mean Platelet Vol. 9.1 fl (6.2-12.0); Monocyte# 0.84 X10^3/uL; Monocyte% 3.7 % (0-10); NRBC Flagged by Analyzer 0 % (0-5); Neutrophil # 20.26 X10^3/uL (2.7-7.7); POSITIVE DIFFERENTIAL YES; Platelet Count 651 K/mm3 (150-450); RBC Distribution Width CV 12.9 % (11.6-14.6); RBC Distribution Width SD 44.4 fl (35.1-43.9); Red Blood Count 3.96 M/mm3 (4.6-6.2); White Blood Count 22.5 K/mm3 (4.4-11.0)
[2023-02-11 06:50] LABS: Differential Indicated SCAN CRITERIA MET
--- NOTE | 2023-02-11 07:09 | PCM.PN.SRG ---
Subjective Subjective Patient had a lot of belching and hiccuping overnight with some vomiting. He reports he is not feeling well. Objective Data Objective Data Vital Signs: Vital Signs Temp Pulse Resp BP Pulse Ox O2 Del Method 97 F L 106 H 16 146/93 H 96 Room Air 02/11/23 03:57 02/11/23 03:57 02/11/23 03:57 02/11/23 03:57 02/11/23 03:57 02/11/23 03:57 Oxygen Delivery Method Room Air Weight: 171 lb 7.997 oz Body Mass Index (BMI) 26.0 Intake & Output: Intake and Output for Last 24 Hours 02/09/23 02/10/23 02/11/23 23:59 23:59 23:59 Intake Total 3788.58 / 3788.58 2964.58 / 2964.58 1025 / 1025 Output Total 1491 / 1491 715 / 715 580 / 580 Balance 2297.58 / 2297.58 2249.58 / 2249.58 445 / 445 Lab / Micro Data 02/11/23 05:59 02/10/23 06:30 Labs: Laboratory Results - last 24 hr 02/10/23 06:30: Sodium 133 L, Potassium 4.3, Chloride 107, Carbon Dioxide 19.0 L, Anion Gap 7, BUN 11, Creatinine 0.71, Estim Creat Clear Calc 67.45, Est GFR (MDRD) Af Amer 141, Est GFR (MDRD) Non-Af 116, BUN/Creatinine Ratio 15.4, Glucose 119 H, Calcium 7.7 L, Phosphorus 3.2, Magnesium 1.9 02/11/23 05:59: WBC 22.5 H, RBC 3.96 L, Hgb 12.6 L, Hct 36.9 L, MCV 93.2, MCH 31.8, MCHC 34.1, RDW Std Deviation 44.4 H, RDW Coeff of Chivo 12.9, Plt Count 651 H, MPV 9.1, Immature Gran % (Auto) 2.600 H, Neut % (Auto) 90.0 H, Lymph % (Auto) 3.1 L, [place] % (Auto) 3.7, Eos % (Auto) 0.0, Baso % (Auto) 0.6, Absolute Neuts (auto) 20.3 H, Absolute Lymphs (auto) 0.70 L, Nucleated RBC % 0 Micro: Microbiology 02/09/23 13:09 Diverticulum Gram Stain - Final 02/09/23 13:09 Diverticulum Wound Culture - Preliminary Escherichia coli Gram Positive Cocci Physical Exam Const oriented x3 Resp normal respiratory effort GI soft to palpation Inspection: abdominal distention Assessment & Plan Assessment/Plan (1) Diverticulitis of colon with perforation: PLAN: The patient had some episodes of vomiting and hiccuping and he is belching a lot. I highly recommended NG tube but at this point he is refusing. He said he will think about it today and possibly allow us to place an NG. He says he is ambulating with a nurse says he only ambulated once. Patient seems distended. His white count did increase. There is no output from his colostomy yet. I advised him to only take minimal ice chips and stop a clear liquid diet. Patient likely developing postoperative ileus. I will once again try to talk the patient into an NG tube. Satniago Garcia MD Pager: [facility] [address] [place] [address], [address] [place] [address] Office:
--- NOTE | 2023-02-11 07:29 | RAD_ITS ---
STUDY: X-RAY - ABDOMEN/PELVIS REASON FOR EXAM: Male, 67 years old. ng placement -- KUB with both diaphragms for NG/OG Verification TECHNIQUE: Single AP view of the abdomen / pelvis. COMPARISON: None. FINDINGS: Nasogastric tube with the tip in the right upper quadrant likely in the antrum the stomach. There is an unremarkable bowel gas pattern. The visualized liver, spleen and kidneys are grossly normal in size and morphology. Normal soft tissue structures. Normal visualized osseous structures. RAD/Abdomen Single View (Portable) IMPRESSION: 1. Nasogastric tube with the tip in the right upper quadrant likely in the antrum the stomach. 2. Nonspecific bowel gas pattern. Electronically Signed: Jj Wang MD at 8:31 EDT ,
[2023-02-11 07:36] LABS: Anion Gap 7 (5-15); BUN 19 mg/dL (7-18); BUN/Creat Ratio 26.4 RATIO (10-20); Calcium,Total 8.1 mg/dL (8.5-10.1); Chloride 105 mmol/L (98-107); Creatinine, Serum 0.72 mg/dL (0.70-1.30); EST Glomerular Filtration Rate 115 mL/min (>60); Est Glom Filt Rate - Afr Amer 139 mL/min (>60); Estimated Creatinine Clearance 67.45 ml/min; Glucose 159 mg/dL (74-106); Magnesium 1.6 mg/dL (1.6-2.6); Phosphorus 1.8 mg/dL (2.5-4.9); Potassium 3.7 mmol/L (3.5-5.1); Sodium Level 137 mmol/L (136-145)
[2023-02-11] MEDS: Oxymetazoline 0.05% 1 SPRAY SPRAY.BTL 2 SPRAY NASAL (08:00)
[2023-02-11 08:17] VITALS: BP 146/92; PULSE 119; RESP 16; TEMP 36.2; O2SAT 96
[2023-02-11 08:20] VITALS: RESP 16
[2023-02-11 09:42] LABS: Differential Comment SCANNED
[2023-02-11] MEDS: Lisinopril 20 MG Tablet PO (13:03)
--- NOTE | 2023-02-11 15:05 | CASEMGMT ---
AGUILA MURRIETA Follow-up: AGUILA MURRIETA met face to face with pt and at bedside. Per pt's they have selected [facility] as their first choice for HHC. They will consider others if [facility] does not accept. Referral sent via [employer]. Will follow-up on Monday for acceptance. Mane Pang RN CM
[2023-02-11 16:39] VITALS: BP 132/70; PULSE 102; RESP 18; TEMP 37.2; O2SAT 98
[2023-02-11 16:41] VITALS: RESP 16
[2023-02-11 21:00] VITALS: PULSE 98; RESP 16
[2023-02-12] MEDS: 0.9% Normal Saline 1,000 ML 125 ML IV (02:08)
[2023-02-12 02:11] VITALS: BP 137/85; PULSE 103; RESP 18; TEMP 36.6; O2SAT 94
[2023-02-12 07:06] LABS: Absolute Lymphocyte Count 1.33 X10^3/uL (0.83-4.51); Absolute Neutrophil Count 11.8 X10^3/uL (2.0-7.7); Basophil% 0.7 % (0-1); Eosinophil# 0.07 X10^3/uL; Eosinophils% 0.5 % (0-5); Hematocrit 31.3 % (40-54); Hemoglobin 10.2 g/dL (13.0-16.5); Lymphocyte # 1.33 X10^3/ul (0.83-4.51); Lymphocyte % 9.1 % (19-41); Mean Corp Hgb Conc 32.6 g/dL (32-36); Mean Corpuscular Hgb 31.3 pg (27.0-32.0); Mean Platelet Vol. 9.1 fl (6.2-12.0); Monocyte# 0.86 X10^3/uL; Monocyte% 5.9 % (0-10); NRBC Flagged by Analyzer 0 % (0-5); Neutrophil # 11.79 X10^3/uL (2.7-7.7); Neutrophil % 80.7 % (47-70); Platelet Count 515 K/mm3 (150-450); RBC Distribution Width CV 13.2 % (11.6-14.6); RBC Distribution Width SD 46.5 fl (35.1-43.9); Red Blood Count 3.26 M/mm3 (4.6-6.2); White Blood Count 14.6 K/mm3 (4.4-11.0)
[2023-02-12 07:26] LABS: Anion Gap 7 (5-15); BUN 19 mg/dL (7-18); BUN/Creat Ratio 28.1 RATIO (10-20); Chloride 108 mmol/L (98-107); Creatinine, Serum 0.68 mg/dL (0.70-1.30); EST Glomerular Filtration Rate 124 mL/min (>60); Est Glom Filt Rate - Afr Amer 150 mL/min (>60); Estimated Creatinine Clearance 67.45 ml/min; Glucose 102 mg/dL (74-106); Potassium 3.6 mmol/L (3.5-5.1); Sodium Level 140 mmol/L (136-145)
--- NOTE | 2023-02-12 07:42 | RAD_ITS ---
INDICATION: ileus EXAMINATION/TECHNIQUE: X-RAY - XR Abdomen W/ Decub and/or Erect Views COMPARISON: Prior studies dated: February 11, [address] of the abdomen and pelvis dated February 07, 2023 FINDINGS: BOWEL GAS PATTERN: There is an enteric tube in place with its tip within the expected region of the proximal duodenum. There are new surgical clips projecting over the lower abdomen. There are dilated gas-filled loops of small bowel with air-fluid levels. There appears to be a drainage catheter within the right lower abdomen. ORGANOMEGALY: Not seen. CALCIFICATIONS: No abnormal calcifications observed. LOWER CHEST: No acute pathology. BONES AND SOFT TISSUES: No acute pathology. RAD/Abd Decub and/or Erect(Portabl IMPRESSION: Findings concerning for a small bowel obstruction or possible ileus. Electronically Signed: Chrissy Robins MD at 8:21 EDT ,
[2023-02-12 08:00] VITALS: BP 142/84; PULSE 98; RESP 18; TEMP 36.5; O2SAT 94
[2023-02-12 08:19] LABS: Phosphorus 2.4 mg/dL (2.5-4.9)
[2023-02-12] MEDS: Lisinopril 20 MG Tablet PO (08:51)
--- NOTE | 2023-02-12 09:38 | PN.SURG_ITS ---
Subjective Subjective Patient is having some bowel function from his colostomy. He is still having hiccups Objective Data Objective Data Vital Signs: Vital Signs Temp Pulse Resp BP Pulse Ox O2 Del Method 97.7 F L 98 18 142/84 H 94 Room Air 02/12/23 08:00 02/12/23 08:00 02/12/23 08:00 02/12/23 08:00 02/12/23 08:00 02/12/23 08:00 Oxygen Delivery Method Room Air Weight: 171 lb 7.997 oz Body Mass Index (BMI) 26.0 Intake & Output: Intake and Output for Last 24 Hours 02/10/23 02/11/23 02/12/23 23:59 23:59 23:59 Intake Total 2964.58 / 2964.58 3908.3333 / 3908.3333 90 / 90 Output Total 715 / 715 4985 / 5185 200 / 200 Balance 2249.58 / 2249.58 -1076.6667 / -1276.6667 -110 / -110 Lab / Micro Data 02/12/23 05:09 02/12/23 05:09 Labs: Laboratory Results - last 24 hr 02/11/23 05:59: Differential Comment SCANNED 02/12/23 05:09: WBC 14.6 H, RBC 3.26 L, Hgb 10.2 L, Hct 31.3 L, MCV 96.0 H, MCH 31.3, MCHC 32.6, RDW Std Deviation 46.5 H, RDW Coeff of Chivo 13.2, Plt Count 515 H, MPV 9.1, Immature Gran % (Auto) 3.100 H, Neut % (Auto) 80.7 H, Lymph % (Auto) 9.1 L, [place] % (Auto) 5.9, Eos % (Auto) 0.5, Baso % (Auto) 0.7, Absolute Neuts (auto) 11.8 H, Absolute Lymphs (auto) 1.33, Nucleated RBC % 0, Sodium 140, Potassium 3.6, Chloride 108 H, Carbon Dioxide 25.0, Anion Gap 7, BUN 19 H, Creatinine 0.68 L, Estim Creat Clear Calc 67.45, Est GFR (MDRD) Af Amer 150, Est GFR (MDRD) Non-Af 124, BUN/Creatinine Ratio 28.1 H, Glucose 102, Calcium 8.0 L, Phosphorus 2.4 L, Magnesium 2.0 Micro: Microbiology 02/09/23 13:09 Diverticulum Gram Stain - Final 02/09/23 13:09 Diverticulum Wound Culture - Final Escherichia coli Streptococcus agalactiae (B) Radiography Diagnostic Testing: Radiology Impression Abdomen X-Ray 02/12/23 07:42 IMPRESSION: Findings concerning for a small bowel obstruction or possible ileus. Electronically Signed: Chrissy Robins MD at 8:21 EDT , Physical Exam Const oriented x3 Resp normal respiratory effort GI soft to palpation Inspection: abdominal distention Assessment & Plan Assessment/Plan (1) Diverticulitis of colon with perforation: PLAN: The patient has bilious drainage from his NG tube but I believe it is in the duodenum. I ordered an acute abdominal series which still showed dilated small bowel loops with air-fluid levels. I will pull the NG back 10 cm and continue suction. Patient likely still has a small bowel ileus. Hope to remove the NG by later today or tomorrow. Continue IV fluids. Santiago Garcia MD Pager: [facility] [address] [place] [address], [address] [place] [address] Office:
[2023-02-12] MEDS: 0.9% Normal Saline 1,000 ML 60 ML IV (10:55)
--- NOTE | 2023-02-12 11:00 | NURSING ---
NG pulled back 10cm at this time, patient julee well. Pt assisted to ambulate and made one lap around the hallway.
[2023-02-12 15:43] VITALS: BP 143/89; PULSE 87; RESP 18; TEMP 37.2; O2SAT 95
[2023-02-12 20:17] VITALS: BP 150/81; PULSE 100; RESP 16; TEMP 36.9; O2SAT 97
[2023-02-12] MEDS: 0.9% Saline Lock 10 ML Syringe IV (22:40)
[2023-02-13 02:17] VITALS: BP 153/80; PULSE 85; RESP 16; TEMP 36.7; O2SAT 94
[2023-02-13] MEDS: 0.9% Normal Saline 1,000 ML 60 ML IV (05:48)
[2023-02-13 07:05] LABS: Absolute Lymphocyte Count 1.14 X10^3/uL (0.83-4.51); Absolute Neutrophil Count 8.4 X10^3/uL (2.0-7.7); Basophil# 0.12 X10^3/uL; Basophil% 1.1 % (0-1); Eosinophil# 0.16 X10^3/uL; Eosinophils% 1.5 % (0-5); Hematocrit 29.4 % (40-54); Hemoglobin 9.8 g/dL (13.0-16.5); Lymphocyte # 1.14 X10^3/ul (0.83-4.51); Lymphocyte % 10.3 % (19-41); Mean Corp Hgb Conc 33.3 g/dL (32-36); Mean Corpuscular Hgb 31.8 pg (27.0-32.0); Mean Corpuscular Volume 95.5 fL (80-94); Mean Platelet Vol. 8.6 fl (6.2-12.0); Monocyte# 0.72 X10^3/uL; Monocyte% 6.5 % (0-10); NRBC Flagged by Analyzer 0 % (0-5); Neutrophil # 8.38 X10^3/uL (2.7-7.7); Neutrophil % 76.1 % (47-70); Platelet Count 435 K/mm3 (150-450); RBC Distribution Width CV 13.1 % (11.6-14.6); RBC Distribution Width SD 45.2 fl (35.1-43.9); Red Blood Count 3.08 M/mm3 (4.6-6.2)
[2023-02-13 07:20] LABS: Anion Gap 6 (5-15); BUN 16 mg/dL (7-18); BUN/Creat Ratio 22.6 RATIO (10-20); Calcium,Total 7.6 mg/dL (8.5-10.1); Chloride 109 mmol/L (98-107); Creatinine, Serum 0.71 mg/dL (0.70-1.30); EST Glomerular Filtration Rate 117 mL/min (>60); Est Glom Filt Rate - Afr Amer 142 mL/min (>60); Estimated Creatinine Clearance 67.45 ml/min; Glucose 94 mg/dL (74-106); Potassium 3.7 mmol/L (3.5-5.1); Sodium Level 139 mmol/L (136-145)
[2023-02-13] MEDS: Lisinopril 20 MG Tablet PO (08:23)
[2023-02-13 08:48] VITALS: BP 154/92; PULSE 93; RESP 16; TEMP 36.7; O2SAT 97
--- NOTE | 2023-02-13 10:45 | PCM.PN.SRG ---
Subjective Subjective Patient seen and examined during AM rounds. He is sitting in bed resting. He reports that he is feeling much better and glad that his nasogastric tube is out and that is over. He states that he has had minimal pain and has been trying to ambulate and every opportunity he gets. He notes that he has not rested well with interruptions at night, but otherwise feels well. Does state that he has some persistent hiccups, but denies any nausea. He asked whether or not he will be able to discharge home later today. Objective Data Objective Data Vital Signs: Vital Signs Temp Pulse Resp BP Pulse Ox O2 Del Method 98.1 F 93 16 154/92 H 97 Room Air 02/13/23 08:48 02/13/23 08:48 02/13/23 08:48 02/13/23 08:48 02/13/23 08:48 02/13/23 08:48 Oxygen Delivery Method Room Air Weight: 171 lb 7.997 oz Body Mass Index (BMI) 26.0 Intake & Output: Intake and Output for Last 24 Hours 02/11/23 02/12/23 02/13/23 23:59 23:59 23:59 Intake Total 3908.3333 / 3908.3333 1955 / 2135 1005 / 1005 Output Total 4985 / 5185 2725 / 2737 119 / 119 Balance -1076.6667 / -1276.6667 -770 / -602 886 / 886 Lab / Micro Data 02/13/23 07:00 02/13/23 07:00 Labs: Laboratory Results - last 24 hr 02/13/23 07:00: WBC 11.0, RBC 3.08 L, Hgb 9.8 L, Hct 29.4 L, MCV 95.5 H, MCH 31.8, MCHC 33.3, RDW Std Deviation 45.2 H, RDW Coeff of Chivo 13.1, Plt Count 435, MPV 8.6, Immature Gran % (Auto) 4.500 H, Neut % (Auto) 76.1 H, Lymph % (Auto) 10.3 L, [place] % (Auto) 6.5, Eos % (Auto) 1.5, Baso % (Auto) 1.1 H, Absolute Neuts (auto) 8.4 H, Absolute Lymphs (auto) 1.14, Nucleated RBC % 0, Sodium 139, Potassium 3.7, Chloride 109 H, Carbon Dioxide 24.0, Anion Gap 6, BUN 16, Creatinine 0.71, Estim Creat Clear Calc 67.45, Est GFR (MDRD) Af Amer 142, Est GFR (MDRD) Non-Af 117, BUN/Creatinine Ratio 22.6 H, Glucose 94, Calcium 7.6 L Micro: Microbiology 02/09/23 13:09 Diverticulum Gram Stain - Final 02/09/23 13:09 Diverticulum Wound Culture - Final Escherichia coli Streptococcus agalactiae (B) 02/09/23 13:09 Diverticulum Anaerobic Culture - Preliminary Physical Exam Const oriented x3 and no apparent distress Resp normal respiratory effort GI GI Narrative: Mildly distended, operative site covered with clean/dry dressing. Right lower quadrant drain with serosanguineous output. Left lower quadrant drain with serous output. Thin, dark liquid in ostomy bag with gas. Patient nontender to palpation. Assessment & Plan Assessment/Plan (1) Diverticulitis of colon with perforation: PLAN: This is a 67-year-old male who is postoperative day 4 from diverting open colostomy for perforated diverticulitis. He ended up developing signs and symptoms of an ileus over the weekend requiring placement of nasogastric tube. However, he has tolerated liquid diet with the tube clamped and it was thus removed earlier today. He states that he feels well apart from not being able to rest in the hospital. He wishes to know whether or not he will be able to discharge home. I have cautioned him that I would like to see him tolerating more of a diet before we would consider discharge in light of the fact that he is still reporting hiccuping and did have the ileus. I would also like to transition him off his dependence of an IV route his other medications. I estimate this will take us until tomorrow morning everything goes well. Neuro: Continue as needed morphine, as needed acetaminophen Pulm/CV: Incentive spirometer, bites that home DARÍO inhibitor FEN/GI: Trend electrolytes, advance to transitional diet, convert IV Protonix to p.o., wound ostomy consult for ostomy : No issues aside from some reported mild irritation with urinating still Heme/ID: Continue to trend CBC?hemoglobin appears to be stabilized, WBC now normal. In addition to Augmentin based on intraperitoneal cultures. Endo: No current issues Proph: SCDs, ambulate as tolerated Dispo: Continue inpatient stay but discharge anticipated 02/14/2023. Jose with case management and arrangements are being made for home health. Charges/Coding Visit Charges Inpatient E&M: 83063 Subs Hosp L2
[2023-02-13 12:20] VITALS: BP 124/79; PULSE 99; RESP 16; TEMP 37.1; O2SAT 97
--- NOTE | 2023-02-13 12:25 | CASEMGMT ---
Addendum entered by Wendy Sabillon 02/13/23 13:57: Received tc back from Debora at [facility], they will plan to see pt on Monday. AGUILA MURRIETA into pt room, pt and aware. They deny further needs. Original Note: AGUILA MURRIETA into pt room, pt and present. [facility] was chosen. TC to Debora, left message with referral. Faxed ostomy supply order at this time.
--- NOTE | 2023-02-13 12:32 | DCINST_ITS ---
Discharge Instructions Diet Discharge Diet: Soft diet (low fiber) Activity Discharge Activity: May Not Drive (May not drive while taking narcotic pain medications) and May Shower (May begin showering 48hours postop. Please avoid baths or submerging surgical incisions before skin is completely healed.) May shower in (days): 2 May resume sexual activity in: 2 weeks Ice area for (Minutes): 20 Lifting Restrictions: Limit lifting to <10lbs for 5 weeks following surgery Dressing / Incision Call your doctor if your incision/area has: Sudden Increased Bleeding, Increased Pain/ Swelling, Increased Redness, Foul Smelling Discharge and Swelling at the incision site Call your doctor if you observe: Fever of 101 or Higher, Inability to urinate, Inability to have a bowel movement and Uncontrolled pain Suture Line Care: Avoid Pulling/Pushing Remove Dressing in: 2 days (from drain sites) Cleanse incision/area with: Keep Dressing Clean & Dry Follow Up Care Please Follow Up With: Kiran Fernandez MD When: 2 weeks postop Test Results: Test results from this visit will be discussed in further detail at your follow- up appointment, if applicable. Discharge Plan Admission Admit Date/Time: 02/07/23 13:30 Primary Reason for Your Visit: Perforated diverticulitis Attending Provider: Kiran Fernandez Primary Care Provider: Will Eldridge Discharge Orders/Prescriptions Prescriptions: New amoxicillin-pot clavulanate 875-125 mg Tablet 1 tab PO BID 7 Days Qty: 14 0RF pantoprazole 40 mg Tablet,Delayed Release (Dr/Ec) 40 mg PO DAILY 10 Days Qty: 10 0RF Continued aspirin [Adult Aspirin Regimen] 81 mg tablet,delayed release (DR/EC) 81 mg PO DAILY sildenafil (pulm.hypertension) 20 mg tablet 20 mg PO .PRN Qty: 30 3RF Rx Instructions: administer doses at least 4-6 hours apart benazepril 20 mg tablet See Rx Instructions PO DAILY Qty: 90 2RF Dose Instruction: 20 MG ORALLY DAILY Rx Instructions: 20 MG ORALLY DAILY orally daily; Referrals / Follow Up: Will Eldridge DO [Primary Care Provider] - Disposition Disposition (needs filled in before D/C Order can be placed): Home Health Service
--- NOTE | 2023-02-13 13:51 | WOUNDNOTE ---
In room for more ostomy education with patient and . patient was able to demonstrate how to empty and clean the end of the appliance. patient also removed the appliance. cleaned the peristomal skin with warm water. the stoma is slightly larger than the pattern cut for patient last week. patient was able to cut the flange for stomal size. placed the paste ring around the stoma followed by the flange. patient was able to snap the pouch onto the flange without difficulty. left surgical incision MICROBIOLOGICAL LAB TECHNICIAN at this time per Dr Rebecca daniels. was able to offset the appliance so the flange was not over the incision. all questions answered. 3 appliances, paste rings, and pouches will be sent home with patient. script for supplies was faxed to home health per case management. pt denies further questions or concerns at this time. LOS drains will possibly be removed tomorrow. will continue to follow.
--- NOTE | 2023-02-13 14:28 | CHAPLAIN ---
Type of Pastoral Visit _x__ Initial Visit ___ Follow-up Visit ___ On-call Visit ___ General Patient Visit ___ Spiritual Assessment ___ Family Conference ___ Bereavement ___ Rapid Response ___ Code Blue ___ Other (describe below) Pastoral Care Referral From ___ Patient _x__ Family ___ Nurse ___ Physician ___ Gang Head Saw Operator ___ Lead Pharmacy Technician ___ Other (describe below) Sacrament/Intervention _x__ Active listening ___ Anointing ___ Adventist ___ Bereavement ___ Communion ___ Mag exploration ___ _x__ Life review _x__ Prayer ___ Reconciliation ___ Sacrament of Sick _x__ Supportive presence ___ Wedding ___ Other (describe below) Pastoral Comments patient's family requested a visit and pt receives this well; pt recounts his illness and surgery and the changes he will face initially; spouse also comes into the conversation; both were surprised by the surgery but hopeful about eventual outcome; some life review given and perspective on the current situation shared; listened, offered presence and support, gave prayer as well
[2023-02-13 15:08] VITALS: BP 139/71; PULSE 102; RESP 16; TEMP 36.6; O2SAT 95
[2023-02-13] MEDS: Ensure Plus High Protein 120 ML LIQUID PO (16:58)
[2023-02-13] MEDS: Amox/Clavulanate 875 MG Tablet PO (22:32)
[2023-02-13 22:41] VITALS: BP 153/75; PULSE 82; RESP 18; TEMP 36.5; O2SAT 98
[2023-02-14 05:13] VITALS: BP 156/77; PULSE 82; RESP 18; TEMP 36.7; O2SAT 97
[2023-02-14 07:11] LABS: Hemoglobin 10.2 g/dL (13.0-16.5); Mean Platelet Vol. 8.9 fl (6.2-12.0); POSITIVE COUNT YES; POSITIVE MORPHOLOGY YES; Platelet Count 460 K/mm3 (150-450); RBC Distribution Width CV 13.1 % (11.6-14.6); RBC Distribution Width SD 44.8 fl (35.1-43.9); Red Blood Count 3.19 M/mm3 (4.6-6.2)
[2023-02-14 07:34] LABS: Anion Gap 3 (5-15); BUN 12 mg/dL (7-18); BUN/Creat Ratio 18.7 RATIO (10-20); Calcium,Total 7.8 mg/dL (8.5-10.1); Chloride 107 mmol/L (98-107); Creatinine, Serum 0.64 mg/dL (0.70-1.30); EST Glomerular Filtration Rate 131 mL/min (>60); Est Glom Filt Rate - Afr Amer 159 mL/min (>60); Estimated Creatinine Clearance 67.45 ml/min; Glucose 112 mg/dL (74-106); Potassium 3.4 mmol/L (3.5-5.1); Sodium Level 136 mmol/L (136-145)
[2023-02-14 07:57] LABS: Differential Indicated MANUAL DIFF
[2023-02-14] MEDS: Amox/Clavulanate 875 MG Tablet PO (08:00)
[2023-02-14] MEDS: Pantoprazole Sodium 40 MG Tablet PO (08:00)
[2023-02-14] MEDS: Lisinopril 20 MG Tablet PO (08:00)
[2023-02-14 08:16] VITALS: BP 157/93; PULSE 88; RESP 16; TEMP 36.6; O2SAT 97
--- NOTE | 2023-02-14 08:17 | PCM.DC.SUM ---
Providers Date of Admission: 02/07/23 Primary Care Physician: Dr. Will Eldridge, DO Consultations 02/10/23 06:43 Consult: Onc/Wound/machine joint cutter Routine Comment: Reason for Consult:: colsotomy Reason For Visit: PERFORATED DIVERTICULITIS Diagnosis Discharge Diagnosis (1) Diverticulitis of colon with perforation: Status: Acute Code(s): K57.20 - Diverticulitis of large intestine with perforation and abscess without bleeding Plan: The patient has bilious drainage from his NG tube but I believe it is in the duodenum. I ordered an acute abdominal series which still showed dilated small bowel loops with air-fluid levels. I will pull the NG back 10 cm and continue suction. Patient likely still has a small bowel ileus. Hope to remove the NG by later today or tomorrow. Continue IV fluids. Santiago Garcia MD Pager: [facility] [address] [place] [address], [address] [place] [address] Office: Medications at Discharge Home Medications aspirin 81 mg tablet,delayed release (Adult Aspirin Regimen) 81 mg PO DAILY 04/01/22 sildenafil (pulm.hypertension) 20 mg tablet 20 mg PO .PRN #30 tabs 07/11/22 benazepril 20 mg tablet See Rx Instructions PO DAILY #90 tabs 11/23/22 amoxicillin 875 mg-potassium clavulanate 125 mg tablet 1 tab PO BID 7 days #14 tabs 02/13/23 pantoprazole 40 mg tablet,delayed release 40 mg PO DAILY 10 days #10 tabs 02/13/23 Hospital Course Operations colectomy Summary of Care Provided Hospital Course: Patient was admitted with diverticulitis with pelvic abscess. He was taken to surgery and Sun's procedure was performed. Patient had a postoperative ileus but once that resolved the NG was removed and the patient was started on diet. Once he tolerate diet he was discharged home. Physical Exam Narrative Patient reports he is feeling well and tolerating a diet Const oriented x3 Resp normal respiratory effort Cardio regular rate and regular rhythm GI soft to palpation and non-tender Weight / BMI Weight Weight: 171 lb 7.997 oz Body Mass Index (BMI) 26.0 ABG / Lab / Microbiology Data 02/14/23 06:10 02/14/23 06:10 Laboratory: Laboratory Results - last 24 hr 02/14/23 06:10: WBC 12.0 H, RBC 3.19 L, Hgb 10.2 L, Hct 30.0 L, MCV 94.0, MCH 32.0, MCHC 34.0, RDW Std Deviation 44.8 H, RDW Coeff of Chivo 13.1, Plt Count 460 H, MPV 8.9, Neut % (Auto) Not Reportable, Sodium 136, Potassium 3.4 L, Chloride 107, Carbon Dioxide 26.0, Anion Gap 3 L, BUN 12, Creatinine 0.64 L, Estim Creat Clear Calc 67.45, Est GFR (MDRD) Af Amer 159, Est GFR (MDRD) Non-Af 131, BUN/Creatinine Ratio 18.7, Glucose 112 H, Calcium 7.8 L Microbiology: Microbiology 02/09/23 13:09 Diverticulum Gram Stain - Final 02/09/23 13:09 Diverticulum Wound Culture - Final Escherichia coli Streptococcus agalactiae (B) 02/09/23 13:09 Diverticulum Anaerobic Culture - Final Bacteroides fragilis D/C Instructions Discharge Diet: Soft diet (low fiber) May shower in (days): 2 May resume sexual activity in: 2 weeks Ice area for (Minutes): 20 Call your doctor if your incision/area has: Sudden Increased Bleeding, Increased Pain/ Swelling, Increased Redness, Foul Smelling Discharge and Swelling at the incision site Call your doctor if you observe: Fever of 101 or Higher, Inability to urinate, Inability to have a bowel movement and Uncontrolled pain Suture Line Care: Avoid Pulling/Pushing Cleanse incision/area with: Keep Dressing Clean & Dry Please Follow Up With: Kiran Fernandez MD When: 2 weeks postop Meaningful Use Info Meaningful Use Diagnoses (Choose all that apply): None applicable Discharge Plan Admission Admit Date/Time: 02/07/23 13:30 Primary Reason for Your Visit: Perforated diverticulitis Attending Provider: Kiran Fernandez Primary Care Provider: Will Eldridge Discharge Orders/Prescriptions Prescriptions: New amoxicillin-pot clavulanate 875-125 mg Tablet 1 tab PO BID 7 Days Qty: 14 0RF pantoprazole 40 mg Tablet,Delayed Release (Dr/Ec) 40 mg PO DAILY 10 Days Qty: 10 0RF Continued aspirin [Adult Aspirin Regimen] 81 mg tablet,delayed release (DR/EC) 81 mg PO DAILY sildenafil (pulm.hypertension) 20 mg tablet 20 mg PO .PRN Qty: 30 3RF Rx Instructions: administer doses at least 4-6 hours apart benazepril 20 mg tablet See Rx Instructions PO DAILY Qty: 90 2RF Dose Instruction: 20 MG ORALLY DAILY Rx Instructions: 20 MG ORALLY DAILY orally daily; Referrals / Follow Up: Will Eldridge DO [Primary Care Provider] - Disposition Disposition (needs filled in before D/C Order can be placed): Home Health Service
[2023-02-14 09:30] LABS: Metamyelocyte 1 % (0-1); Neutrophil-Segmented 84 % (47-70); Total Cells Counted 100 (MANUAL DIFF)
[2023-02-14 09:31] LABS: Eosinophil 1 % (0-5); Lymphocyte 7 % (19-41); Monocyte 3 % (0-10); Myelocyte 4 % (0-0); Platelet Estimate ADEQUATE (ADEQ); Red Cell Morphology NORM C+C NORMAL (NORM C&C)
[2023-02-14 09:32] LABS: Absolute Lymphocyte Count 0.84 X10^3/uL (0.83-4.51); Absolute Neutrophil Count 10.1 X10^3/uL (2.0-7.7)
[2023-02-17 09:55] LABS: Pathologist Review Reviewed
== END 2023-02-14 09:15 | disposition home health service (06) | DRG 330 ==
LOC: ED 13:48 → MS3 14:11
PROVIDERS: Surgery; Admitting Provider Surgery; Emergency Provider Emergency Medicine; PCP Family Medicine; Visit Provider Surgery
DX: K57.20 Diverticulitis of large intestine with perforation and abscess without bleeding (principal); K56.7 Ileus, unspecified; I10 Essential (primary) hypertension; B95.1 Streptococcus, group B, as the cause of diseases classified elsewhere; B96.20 Unspecified Escherichia coli [E. coli] as the cause of diseases classified elsewhere; B96.6 Bacteroides fragilis [B. fragilis] as the cause of diseases classified elsewhere; Z53.31 Laparoscopic surgical procedure converted to open procedure; Z79.82 Long term (current) use of aspirin; Z79.899 Other long term (current) drug therapy; Z87.891 Personal history of nicotine dependence
CPT/HCPCS: 36415; 74018; 74019; 74176; 80048; 80053; 81001; 83735; 84100; 85025; 87070; 87075; 87077; 87186; 87205; 88304; 88305; 93005; 94668; 97802; 99285; J7030; J7040; J7050; A4216; J2405; J3490

== ENCOUNTER → 2023-04-14 | Outpatient (CLI) | payer OTHER, SELFPAY ==
[2023-04-14 15:14] LABS: Squamous Epithelial Cells - UA 0 SEEN /hpf (0-5)
[2023-04-14 15:37] LABS: Color, Urine Amber (Yellow); Glucose, Dipstick Normal (Normal); Ketone-Dipstick 15 mg/dl (Negative); Leukocyte Esterase-Dipstick 25 /ul (Negative); Nitrite-Dipstick Positive (Negative); Occult Blood-Urine 50 /ul (Negative); Protein-Dipstick 500 mg/dl (Negative); Specific Gravity, Urine 1.025 (1.002-1.030); Urine Clarity Sl. Cloudy (Clear); Urine Urobilinogen 4 mg/dl (Normal)
[2023-04-14 15:54] LABS: Urine Bilirubin Dipstick 3 mg/dL (Negative)
[2023-04-14 16:02] LABS: Bacteria 1+ /hpf (None Seen); Hyaline Cast 0-5 SEEN /lpf (0-5); Mucous, Urine 1+ /hpf (<or=2+); Red Blood Cells-Urine 0-5 SEEN /hpf (0-5); White Blood Cells 0-5 SEEN /hpf (0-5)
== END | disposition home or self-care (01) ==
LOC: LABSPEC 15:06
PROVIDERS: PCP Family Medicine; Referring Provider Physician Assistant Surgical; Visit Provider Physician Assistant Surgical
DX: N39.0 Urinary tract infection, site not specified (principal)
CPT/HCPCS: 81001; 87086; 87088

== ENCOUNTER → 2023-04-19 | Outpatient (CLI) | payer OTHER, SELFPAY | END | disposition home or self-care (01) | PROVIDERS: PCP Family Medicine; Visit Provider Physician Assistant | DX: R30.0 Dysuria (principal) | CPT/HCPCS: 87086 ==

== ENCOUNTER 2023-04-27 06:22 | Day surgery (SDC) | payer OTHER, SELFPAY ==
--- NOTE | 2023-04-27 06:47 | EKG12_ITS ---
Test Reason : PRE OP Blood Pressure : / mmHG Vent. Rate : 100 BPM Atrial Rate : 100 BPM P-R Int : 148 ms QRS Dur : 094 ms QT Int : 346 ms P-R-T Axes : 060 003 072 degrees QTc Int : 446 ms Sinus rhythm with occasional Premature ventricular complexes Otherwise normal ECG When compared with ECG of 08-FEB-2023 05:45, Premature ventricular complexes are now Present Nonspecific T wave abnormality, improved in Lateral leads Confirmed by JAYLENE MARIE, SORAYA ([id number]), market editor ILANA HORVATH ([id number]) on 05/30/2023 1:18:46 PM Referred By: Will Eldridge Confirmed By:SORAYA MARIEE MD
[2023-04-27 06:49] VITALS: BP 90/77; PULSE 103; RESP 16; TEMP 39.4; O2SAT 98; BMI 24.5
[2023-04-27] MEDS: Lactated Ringers 1,000 ML 15 ML IV (07:03)
--- NOTE | 2023-04-27 07:21 | HP.PCM_ITS ---
History and Physical Date of Admission: 04/27/23 Date of Service: 03/20/23 MR#: [id number] Acct: [id number] Name: LAURO GIPSON Rep #: [id number] : 1955 Provider: Dr. Kiran Fernandez MD Age/Sex: 67/M Location: [facility] Status: Signed Intake Vital Signs 02/10/2313:30 Height 5 ft 8 in Intake Visit Reasons: WOUND CHECK Chief Complaint: wound check--colon Allergies hydromorphone [From Dilaudid] Allergy (Verified 03/20/23 13:56) Hives Medications aspirin 81 mg tablet,delayed release (Adult Aspirin Regimen) 81 mg PO DAILY 04/01/22 [History Confirmed 03/20/23] sildenafil (pulm.hypertension) 20 mg tablet 20 mg PO .PRN #30 tabs 07/11/22 [Rx Confirmed 03/20/23] benazepril 20 mg tablet See Rx Instructions PO DAILY #90 tabs 11/23/22 [Rx Confirmed 03/20/23] pantoprazole 40 mg tablet,delayed release 40 mg PO DAILY 10 days #10 tabs 02/13/23 [Rx Confirmed 03/20/23] Subjective Details: Patient is a 67-year-old male who makes his second postoperative visit following exploratory laparotomy with creation of end colostomy due to perforated diverticulitis on 02/09/2023. His last visit was 03/02/2023. He states that overall he has done well since this last visit. He reports that his ostomy bag is filling approximately 2 times per day. He has not no symptoms of dehydration and confirms that he is drinking about 64 ounces daily. He has several qu estions related to dietary allowances and meqg-pzy-dkqkhau medication usage. He reports that he is still taking 2 protein shakes per day in addition to a well- balanced diet. With this he has experienced weight gain of approximately 2 pounds since his last visit. He denies any fevers or chills at home. He does relate that he is experiencing some mucus discharge from his rectum. He states that he gets that urge (as if to defecate) approximately 1 time per week. This output is described as a clear liquid. Below is recapitulated from patient's prior visit for ease of review: He was discharged from the hospital on 02/14/2023. His last visit was 02/21/2023. Today he reports with his . Jointly, they state that he continues to do well. He reports a further modest weight loss now weighing 162.8 pounds (from 164 previously). He denies any fevers or chills. He denies any wound concerns. He states that he has been continuing to abide by lifting restrictions and help with his with some groceries but insisted that the weight cannot do more than 8 pounds. He reports routine maintenance with his colostomy and changing the appliance every 3 to 4 days. He wishes to know whether alcohol is now permitted and whether or not he is able to do more to broaden his diet. To this end he continues to supplement his protein intake with at least 2 shakes daily. Objective Details: Constitutional: No acute distress, cooperative Abdomen: Well-healing midline laparotomy incision without any gaps or surrounding erythema. Patient's abdomen is nondistended and nontender to palpation x4 quadrants. The stoma of patient's colostomy is pink and well- perfused. Coding Level of Care Code Global Post Op Diagnoses Diverticulitis of colon with perforation K57.20 [facility] Medical History (Updated 03/20/23 @ 16:[address] Kiran Fernandez MD) Diverticulitis of colon with perforation History of pneumonia Hypertension Surgical History (Updated 03/02/23 @ 13:26 by Allie Saxena) H/O colonoscopy History of hemorrhoidectomy History of hernia repair History of tonsillectomy S/P colectomy (~01/2023) S/P colostomy Family History Grandmother Myocardial infarction, Onset Age: 68Uncle Myocardial infarction, Onset Age: 47 AlcoholismSister DiabetesMother HypertensionFather COPD (chronic obstructive pulmonary disease) smoker Social History Smoking Status: Former smoker how long ago did patient quit smokin alcohol intake: current alcohol intake frequency: 0-2 drinks per day Alcohol type: beer substance use type: does not use what type of physical activity do you participate in: walking frequency: 3-4 times per week Assessment and Plan (No Qualifiers) Assessment and Plan (1) Diverticulitis of colon with perforation: Status: Inactive Comment: 67-year-old male who makes his third postoperative visit following diverting descending colostomy after he was found to have perforation of the sigmoid colon secondary to acute diverticulitis with a peritoneal abscess. He continues to recover well in this postoperative phase. His laparotomy wound is now healing nicely and there does not appear to be any local trauma or overly dry areas. A single skin staple was left behind from his last visit given its location under his ostomy appliance and this was removed today. Again, we have discussed some general dietary restrictions and I have encouraged him to be wary of some sources of insoluble fiber, but otherwise given him the greenlight to consume the foods he desires. Lastly we have confirmed that Mr. Gipson plans to undergo diagnostic colonoscopy next month and the details of this procedure were briefly reviewed. Plan: ? Colonoscopy with split prep to be completed early April under local MAC. Patient should have both prep as well as a single soapsuds enema to clear out from below (he is advised to do so very gently). I have examined the patient the following changes are noted: Patient had some complaints of dysuria that appeared to have resolved. He confirms that he has completed his prep in anticipation to today's procedure. Procedure expectations were reviewed with patient and his spouse. They have no further questions. Proceed to the endoscopy suite for planned procedure as discussed above.
--- NOTE | 2023-04-27 07:30 | COLBX_PTH ---
PATIENT: LAURO GIPSON LOC: EN U#:[id number] AGE/SX: 67/M ROOM: RE04/27/[address]: Dr. Kiran Fernandez MD : 1955 BED: DIS: 04/27/2023 SPEC #: [id number] RECD: 04/27/23 10:05 STATUS: MANDI MARCELLO #: [id number] JODY: 04/27/23 07:[address]: Kiran Fernandez DEPT: SURGICAL PATHOLOGY RECD BY: Elvia Davies ENTERED: 04/27/23 10:42 SP TYPE: COLON BX OTHR DR: Dr. Will Eldridge DO Tissues: A - Sigmoid colon biopsy B - Rectum, NOS C - Rectum, NOS D - Rectum, NOS E - Rectum, NOS F - COLON BIOPSY G - Sigmoid colon biopsy Procedures: Surgery Specimen Level IV HEADER OPERATION: Colonoscopy, biopsy, polypectomy PRE-OP DIAGNOSIS: Diverticulitis of colon with perforation TISSUE SUBMITTED: A - Distal sigmoid mucosa biopsy, B - Proximal rectal biopsy, C - Rectal polyp biopsy, D - Proximal rectal polyp biopsy, E - Rectal mucosa biopsy, F - Stoma polyp, G - Sigmoid polyp MICROSCOPIC DIAGNOSIS A. Distal sigmoid mucosa, biopsy: Fragments of colonic mucosa, no pathologic diagnosis. B. Proximal rectal biopsy: Fragments of colonic mucosa, no pathologic diagnosis. C. Rectal polyp, biopsy: Hyperplastic polyp. D. Proximal rectal polyp, biopsy: A fragment of colonic mucosa, no pathologic diagnosis. E. Rectal mucosa, biopsy: A fragment of colonic mucosa, no pathologic diagnosis. F. Stoma polyp, polypectomy: Tubular adenoma. G. Sigmoid polyp, biopsy: A fragment of colonic mucosa, no pathologic diagnosis. SJ:esequiel 04/28/2023 MICROSCOPIC DESCRIPTION Slides are reviewed. GROSS DESCRIPTION A - Received in fixative is one container labeled with the patient's name and designated distal sigmoid mucosa biopsy. The specimen consists of two irregular fragments of light anderson soft tissue that in aggregate measure 0.4 x 0.2 x 0.1 cm. The specimen is totally submitted in one cassette. B - Received in fixative is one container labeled with the patient's name and designated proximal rectal biopsy. The specimen consists of two irregular fragments of light anderson soft tissue that in aggregate measure 0.3 x 0.2 x 0.1 cm. The specimen is totally submitted in one cassette. C - Received in fixative is one container labeled with the patient's name and designated rectal polyp biopsy. The specimen consists of two irregular fragments of light anderson soft tissue that in aggregate measure 0.3 x 0.3 x 0.1 cm. The specimen is totally submitted in one cassette. D - Received in fixative is one container labeled with the patient's name and designated proximal rectal polyp. The specimen consists of one irregular fragment of light anderson soft tissue that measures 0.3 x 0.2 x 0.1 cm. The specimen is totally submitted in one cassette. E - Received in fixative is one container labeled with the patient's name and designated rectal mucosal biopsy. The specimen consists of one irregular fragment of light anderson soft tissue that measures 0.2 x 0.2 x 0.1 cm. The specimen is totally submitted in one cassette. F - Received in fixative is one container labeled with the patient's name and designated stoma polyp. The specimen consists of a pink-red polyp measuring 1.5 x 1.0 x 0.8 cm. The presumed base is inked. The polyp is serially sectioned and submitted entirely in one cassette. G - Received in fixative is one container labeled with the patient's name and designated sigmoid polyp. The specimen consists of a pink-red polyp measuring 1.0 x 0.5 x 0.5 cm. The presumed base is inked. The polyp is bisected and submitted entirely in one cassette. / SJ:rg 04/27/2023 TC:1 CPT: 82423 x7
[2023-04-27 08:45] VITALS: BP 100/88; BP 90/77; PULSE 80; RESP 16; TEMP 36.5; O2SAT 93
[2023-04-27 08:50] VITALS: BP 106/59; BP 90/77; PULSE 75; RESP 16; O2SAT 92
[2023-04-27 08:55] VITALS: BP 90/77; BP 97/62; PULSE 79; RESP 16; O2SAT 94
--- NOTE | 2023-04-27 08:56 | OP.CCLET_ITS ---
04/27/2023 Will Eldridge Re : Colonoscopy procedure for Tien Chung Dear Dr. Eldridge This procedure was performed on April. My impressions and recommendations are as follows: Impressions : - Perianal skin tags found on perianal exam. - Hemorrhoids found on perianal exam. - Diverticulosis in the sigmoid colon, in the descending colon and in the transverse colon. No specimens collected. - One 5 mm polyp in the distal sigmoid colon, removed with a hot snare. Resected and retrieved. - One 3 mm polyp in the rectum. Biopsied. - Altered vascular, atrophic, congested, erythematous and ulcerated mucosa in the rectum. Biopsied. - One 5 mm polyp at the surgical stoma, removed with a hot snare. Resected and retrieved. - Internal hemorrhoids. No specimens collected. Recommendations : - Discharge patient to home (via wheelchair). - Resume previous diet today. - Continue present medications. - Await pathology results. - Repeat colonoscopy date to be determined after pending pathology results are reviewed for surveillance based on pathology results. - Telephone my office for pathology results in 1 week. My findings are described in the full procedure note, which is enclosed. If I can be of further assistance, please feel free to contact me at Doctor phone number(s): , Work: . Sincerely, Kiran Fernandez MD 04/27/2023 8:56:06 AM This report has been signed electronically.
--- NOTE | 2023-04-27 08:56 | OP.COLON_ITS ---
Patient Name: Tien Chung Procedure Date: 04/27/2023 7:19 AM Date of : 1955 Age: 67 Procedure: Colonoscopy Indications: Follow-up of diverticulitis Providers: Kiran Fernandez MD Referring MD: Will Eldridge Medicines: See the Anesthesia note for documentation of the administered medications Patient Profile: Refer to note in patient chart for documentation of history and physical. Last Colonoscopy: more than 10 years ago. Complications: No immediate complications. Estimated blood loss: Minimal. Procedure: Pre-Anesthesia Assessment: - The heart rate, respiratory rate, oxygen saturations, blood pressure, adequacy of pulmonary ventilation, and response to care were monitored throughout the procedure. After I obtained informed consent, the scope was passed under direct vision. Throughout the procedure, the patient's blood pressure, pulse, and oxygen saturations were monitored continuously. The adult colonoscope was introduced through the anus and advanced to the cecum, identified by appendiceal orifice and ileocecal valve. The colonoscopy was somewhat difficult due to post-surgical anatomy and multiple diverticula in the colon. Successful completion of the procedure was aided by using scope torsion. The patient tolerated the procedure well. The quality of the bowel preparation was adequate to identify polyps greater than 5 mm in size. Findings: Skin tags were found on perianal exam. Hemorrhoids were found on perianal exam. Many small and large-mouthed diverticula were found in the sigmoid colon, descending colon and transverse colon. No biopsies or other specimens were collected for this exam. A 5 mm polyp was found in the distal sigmoid colon. The polyp was pedunculated. The polyp was removed with a hot snare. Resection and retrieval were complete. A 3 mm polyp was found in the rectum. The polyp was sessile. Biopsies were taken with a cold forceps for histology. Estimated blood loss was minimal. Estimated blood loss: none. A localized area of moderately altered vascular, atrophic, congested, erythematous and ulcerated mucosa was found in the rectum. Biopsies were taken with a cold forceps for histology. Estimated blood loss was minimal. A 5 mm polyp was found in the surgical stoma. The polyp was pedunculated. The polyp was removed with a hot snare. Resection and retrieval were complete. Estimated blood loss: none. Internal hemorrhoids were found during retroflexion. The hemorrhoids were Grade II (internal hemorrhoids that prolapse but reduce spontaneously). No biopsies or other specimens were collected for this exam. Impression: - Perianal skin tags found on perianal exam. - Hemorrhoids found on perianal exam. - Diverticulosis in the sigmoid colon, in the descending colon and in the transverse colon. No specimens collected. - One 5 mm polyp in the distal sigmoid colon, removed with a hot snare. Resected and retrieved. - One 3 mm polyp in the rectum. Biopsied. - Altered vascular, atrophic, congested, erythematous and ulcerated mucosa in the rectum. Biopsied. - One 5 mm polyp at the surgical stoma, removed with a hot snare. Resected and retrieved. - Internal hemorrhoids. No specimens collected. Recommendation: - Discharge patient to home (via wheelchair). - Resume previous diet today. - Continue present medications. - Await pathology results. - Repeat colonoscopy date to be determined after pending pathology results are reviewed for surveillance based on pathology results. - Telephone my office for pathology results in 1 week. Procedure Code(s): --- Professional --- 07819, Colonoscopy, flexible; with removal of tumor(s), polyp(s), or other lesion(s) by snare technique 62890, 59, Colonoscopy, flexible; with biopsy, single or multiple Diagnosis Code(s): --- Professional --- K64.1, Second degree hemorrhoids D12.5, Benign neoplasm of sigmoid colon D12.8, Benign neoplasm of rectum K62.89, Other specified diseases of anus and rectum K62.6, Ulcer of anus and rectum K64.4, Residual hemorrhoidal skin tags K57.32, Diverticulitis of large intestine without perforation or abscess without bleeding K57.30, Diverticulosis of large intestine without perforation or abscess without bleeding CPT copyright 2021 [employer] [place] [employer] [employer]. All rights reserved. The codes documented in this report are preliminary and upon saloonkeeper review may be revised to meet current compliance requirements. Kiran Fernandez MD 04/27/2023 8:56:06 AM This report has been signed electronically. Number of Addenda: 0 Note Initiated On: 04/27/2023 7:19 AM
[2023-04-27 09:00] VITALS: BP 106/70; BP 90/77; PULSE 80; RESP 16; TEMP 36.5; O2SAT 95
[2023-04-27 09:15] VITALS: BP 90/77
== END 2023-04-27 09:50 | disposition home or self-care (01) ==
LOC: EN 06:22 → AC 06:24
PROVIDERS: PCP Family Medicine; Referring Provider Family Medicine; Visit Provider Surgery
PROC: 0DJD8ZZ Inspection of Lower Intestinal Tract, Via Natural or Artificial Opening Endoscopic (ICD-10-PCS; CPT 45378; principal; 2023-04-27 07:25)
DX: K57.32 Diverticulitis of large intestine without perforation or abscess without bleeding (principal); K64.1 Second degree hemorrhoids; K64.4 Residual hemorrhoidal skin tags; I10 Essential (primary) hypertension; D36.7 Benign neoplasm of other specified sites; Z79.82 Long term (current) use of aspirin; Z79.899 Other long term (current) drug therapy; Z87.891 Personal history of nicotine dependence
CPT/HCPCS: 45380; 45385; 88305; 93005; J7120; J2405

== ENCOUNTER → 2023-04-30 | Outpatient (CLI) | payer OTHER, SELFPAY | END | disposition home or self-care (01) | LOC: LABSPEC 14:12 | PROVIDERS: PCP Family Medicine; Referring Provider Nurse Practitioner Family; Visit Provider Nurse Practitioner Family | DX: R30.0 Dysuria (principal) | CPT/HCPCS: 87077; 87086; 87088; 87186 ==

== ENCOUNTER → 2023-05-03 | Outpatient (CLI) | payer OTHER, SELFPAY ==
[2023-05-03 16:01] LABS: Uric Acid 5.9 mg/dL (3.5-7.2)
== END | disposition home or self-care (01) ==
LOC: BIMLAB 14:31
PROVIDERS: PCP Family Medicine; Visit Provider Family Medicine
DX: M10.9 Gout, unspecified (principal)
CPT/HCPCS: 36415; 84550

== ENCOUNTER → 2023-05-23 | Outpatient (CLI) | payer OTHER, SELFPAY ==
[2023-05-23 16:12] LABS: Mucous, Urine 0 SEEN /hpf (<or=2+); Squamous Epithelial Cells - UA 0 SEEN /hpf (0-5)
[2023-05-23 16:53] LABS: Color, Urine Yellow (Yellow); Glucose, Dipstick Normal (Normal); Ketone-Dipstick Negative (Negative); Leukocyte Esterase-Dipstick 500 /ul (Negative); Nitrite-Dipstick Negative (Negative); Occult Blood-Urine 150 /ul (Negative); Protein-Dipstick 100 mg/dl (Negative); Urine Bilirubin Dipstick Negative (Negative); Urine Clarity Sl. Cloudy (Clear); Urine Urobilinogen 1 mg/dl (Normal)
[2023-05-23 17:12] LABS: Bacteria RARE /hpf (None Seen); Red Blood Cells-Urine 0-5 SEEN /hpf (0-5); White Blood Cells 50-100 SEEN /hpf (0-5)
== END | disposition home or self-care (01) ==
LOC: BIMLAB 16:04
PROVIDERS: PCP Family Medicine; Visit Provider Family Medicine
DX: R30.0 Dysuria (principal)
CPT/HCPCS: 81001; 87077; 87086; 87088; 87186

== ENCOUNTER → 2024-03-04 | Outpatient (CLI) | payer OTHER, SELFPAY ==
--- NOTE | 2024-03-04 08:03 | CT_ITS ---
STUDY: CT ABDOMEN AND PELVIS WITH CONTRAST REASON FOR EXAM: Male, 68 years old. Abdominal pain/hernia -- IV and Oral RADIATION DOSAGE (If Supplied By Facility): CTDIvol = ( 13.84 ) mGy, DLP = ( 969.32 ) mGycm TECHNIQUE: Transaxial images were obtained from the dome of the diaphragm to the symphysis pubis without oral contrast. 100 ML ISOVUE 300 was administered. Sagittal and coronal images were reconstructed. Individualized dose optimization techniques were used for this CT. COMPARISON: Comparison is made with prior study dated February 07, 2023. FINDINGS: The visualized lung bases are unremarkable. Coronary artery calcification. There is a 1.3 cm cyst in the anterior upper aspect of the right lobe of the liver. One centimeters cyst is seen along the anterior aspect of the midportion of the spleen. Normal gallbladder and extrahepatic biliary system. Normal spleen. Normal pancreas. Normal bilateral adrenal glands. Normal right kidney. There is a 9.1 mm hypodense nodule in the posterior inferior aspect of the left kidney suggestive of a small cyst. There is a small hiatal hernia. Normal small intestine. There are scattered colonic diverticula consistent with diverticulosis. The appendix is visualized and appears normal. There is diffuse atherosclerotic calcification of the abdominal aorta. The aorta is slightly dilated measuring 3.1 cm in transverse dimension. Normal inferior vena cava. Normal retroperitoneum. Normal urinary bladder. Prostatic enlargement with indentation at the bladder base. Moderate size anterior ventral hernia. This contains fat. The neck of the hernia measures 7.1 cm.. Small to moderate size right inguinal hernia containing fat and nondilated small bowel loop. There are degenerative changes of the visualized lumbar spine. CT/Abdomen/Pelvis WITH Contrast IMPRESSION: Small hepatic and splenic cysts. Small cyst in the left kidney. Status post resection of the sigmoid colon with residual mild diverticulosis. Prostatic enlargement with indentation of the bladder base. Umbilical hernia containing fat. Right inguinal hernia containing fat and nondilated small bowel. Electronically Signed: Ismael Jain MD at 15:07 EDT ,
== END | disposition home or self-care (01) ==
PROVIDERS: PCP Family Medicine; Referring Provider Surgery; Visit Provider Surgery
DX: K46.9 Unspecified abdominal hernia without obstruction or gangrene (principal)
CPT/HCPCS: 74177; Q9967

== ENCOUNTER → 2025-03-03 | Outpatient (CLI) | payer OTHER, SELFPAY | END | disposition home or self-care (01) | LOC: LABSPEC 14:02 | PROVIDERS: PCP Family Medicine; Visit Provider Physician Assistant | DX: N39.0 Urinary tract infection, site not specified (principal) | CPT/HCPCS: 87077; 87086; 87088; 87186 ==

== ENCOUNTER → 2025-03-18 | Outpatient (CLI) | payer OTHER, SELFPAY | END | disposition home or self-care (01) | LOC: LABSPEC 14:46 | PROVIDERS: PCP Family Medicine; Referring Provider Nurse Practitioner Family; Visit Provider Nurse Practitioner Family | DX: N39.0 Urinary tract infection, site not specified (principal) | CPT/HCPCS: 87077; 87086; 87088; 87186 ==

== ENCOUNTER → 2025-05-26 | Outpatient (CLI) | payer MEDICARE, SELFPAY ==
[2025-05-26 18:21] LABS: AST(SGOT) 22 U/L (<=37); Alanine Aminotransfer ALT/SGPT 14 U/L (<=46); Albumin, Serum 4.4 g/dL (3.4-4.8); Alkaline Phosphatase 81 U/L (40-129); Anion Gap 13 (5-15); BUN 20 mg/dL (4-19); BUN/Creat Ratio 15.2 RATIO (10-20); Calcium,Total 9.7 mg/dL (7.6-11.0); Carbon Dioxide 23.6 mmol/L (21.0-32.0); Chloride 101 mmol/L (98-108); Cholesterol 162 mg/dL (<=200); Globulin 2.6 g/dL (2.2-4.2); Glucose 83 mg/dL (70-99); Low Density Lipoprotein Calc. 71 mg/dL; Potassium 4.2 mmol/L (3.3-5.1); Triglycerides 155 mg/dL; Very Low Density Lipoprotein 31 mg/dL (5-40); cholesterol:hdl ratio screen 2.70
== END | disposition home or self-care (01) ==
LOC: MTLAB 14:02
PROVIDERS: PCP Family Medicine; Referring Provider Family Medicine; Visit Provider Family Medicine
DX: I10 Essential (primary) hypertension (principal)
CPT/HCPCS: 36415; 80053; 80061